=== PATIENT | female | born 1930 | race Caucasian/White ===

== ENCOUNTER 2017-09-06 07:36 | Emergency (ER) | payer MEDICARE ==
[~2017-09-06] VITALS: Ht 167.6 cm; Wt 59.0 kg
[2017-09-06] MEDS ORDERED: ASPI81TA31 PO (07:42)
--- NOTE | 2017-09-06 07:50 | NUR ---
PATIENT IS HERE WITH HER NEIGHBOR. STATES SHE FELL OUT OF BED WHEN SHE WAS GOING TO GET UP TO URINATE. HAS A BRUISE ON HER RIGHT HIP AREA.
[2017-09-06] MEDS ORDERED: ACETAMINOPHEN ES 500 MG TABLET PO ONE (08:15)
[2017-09-06] MEDS ORDERED: ACETAMINOPHEN ES 500 MG TABLET ONE (08:35)
[2017-09-06 08:43] LABS: BASOPHILS % (AUTO) 0.5 % (0.0-2.0); EOSINOPHILS # (AUTO) 0.1 K/uL (0.0-0.7); EOSINOPHILS % (AUTO) 2.2 % (0.0-7.0); HEMATOCRIT 37.8 % (31.2-41.9); HEMOGLOBIN 12.7 g/dL (10.9-14.3); LYMPHOCYTES # (AUTO) 0.3 K/uL (20.0-40.0); LYMPHOCYTES % (AUTO) 6.2 % (20.5-51.5); MEAN CORPUSCULAR HEMOGLOBIN 30.1 uug (24.7-32.8); MEAN CORPUSCULAR HGB CONC 34 g/dL (32.3-35.6); MEAN CORPUSCULAR VOLUME 89.5 fL (75.5-95.3); MONOCYTES # (AUTO) 0.4 K/uL (2.0-10.0); MONOCYTES % (AUTO) 6.5 % (0.0-11.0); NEUTROPHILS # (AUTO) 4.5 K/uL (1.8-8.9); NEUTROPHILS % (AUTO) 84.6 % (38.5-71.5); PLATELET COUNT (AUTO) 132 K/uL (179-408); RED BLOOD CELL COUNT(AUTO) 4.22 MIL/uL (3.63-4.92); WHITE BLOOD COUNT (AUTO) 5.4 K/uL (3.8-11.8)
--- NOTE | 2017-09-06 08:59 | NUR ---
URINE SENT TO LAB.
[2017-09-06 09:07] LABS: CARBON DIOXIDE 29 mmol/L (21-32); CHLORIDE 105 mmol/L (98-107); CREATININE 1.1 mg/dL (0.6-1.3); GLUCOSE 97 mg/dL (74-106); POTASSIUM 4.1 mmol/L (3.5-5.1); UREA NITROGEN, BLOOD 18 mg/dL (7-18)
[2017-09-06 09:23] LABS: ALANINE AMINOTRANSFERASE 31 U/L (14-59); ALKALINE PHOSPHATASE 65 U/L (50-136); ASPARTATE AMINOTRANSFERASE 29 U/L (15-37); BILIRUBIN,DIRECT 0.2 mg/dL (0.0-0.2); BILIRUBIN,TOTAL 0.5 mg/dL (0.2-1.0); TOTAL PROTEIN, SERUM 6.6 g/dL (6.4-8.2)
[2017-09-06 09:31] LABS: *BILIRUBIN,URIN NEGATIVE (NEGATIVE); *BLOOD, URINE NEGATIVE (NEGATIVE); *CLARITY,URINE CLOUDY (CLEAR); *COLOR,URINE LIGHT YELLOW (YELLOW); *KETONES,URINE NEGATIVE (NEGATIVE); *PROTEIN,URINE TRACE (NEGATIVE); *UROBILINOGEN,URINE 0.2 E.U./dl (NORMAL); LEUKOCYTE ESTERASE ,URINE TRACE (NEGATIVE); NITRITE, URINE NEGATIVE (NEGATIVE); PH,URINE 8.5 (5.0-8.0); UGLUCOSE NEGATIVE (NEGATIVE)
[2017-09-06 09:52] LABS: BACTERIA,URINE NONE SEEN /HPF (NONE SEEN); RBC,URINE 0-3 /HPF (0-3); SQUAMOUS EPITHELIAL CELL,UR FEW /HPF (NONE SEEN); WBC,URINE 0-3 /HPF (0-3)
[2017-09-06 09:53] LABS: URINE AMORPHOUS PHOSPHATES FEW /HPF
[2017-09-06] MEDS ORDERED: NEOMY/BACITRA/POLYMYXIN B OINT UD PACKET TP ONE ×2 (10:00→10:03)
--- NOTE | 2017-09-06 10:32 | NUR ---
IV removed. Catheter intact and site benign. Pressure and 4x4 gauze applied to site. No bleeding noted.
--- NOTE | 2017-09-06 11:00 | NUR ---
Patient discharged to home in stable conditon. Written and verbal after care instructions given. Patient verbalizes understanding of instructions.
[2017-09-06 11:01] VITALS: BP 139/84
== END 2017-09-06 11:02 | disposition home or self-care (01) ==
LOC: ER 07:37
DX: S70.01XA Contusion of right hip, initial encounter (principal); I10 Essential (primary) hypertension; Z79.82 Long term (current) use of aspirin; W06.XXXA Fall from bed, initial encounter; Y93.89 Activity, other specified; Y92.89 Other specified places as the place of occurrence of the external cause; Y99.8 Other external cause status
CPT/HCPCS: 36415; 70450; 71045; 73502; 80048; 80076; 81001; 84443; 84484; 85025; 85730; 93005; 99285; A4663; A9150; 70030-TC

== ENCOUNTER 2017-12-19 16:20 | Inpatient (IN) | payer MEDICARE ==
[~2017-12-19] VITALS: Ht 170.2 cm; Wt 60.4 kg
[~2017-12-19 16:20] MED LIST: ASPI81TA31 PO
[2017-12-19] MEDS ORDERED: LEVOTHYROXINE 50 MCG TABLET (16:49)
[2017-12-19] MEDS ORDERED: AMITRIPTYLINE HCL 25 MG TAB (16:49)
[2017-12-19] MEDS ORDERED: MEMANTINE HCL 5 MG TABLET (16:49)
[2017-12-19] MEDS ORDERED: DONEPEZIL HCL 10 MG TABLET (16:49)
[2017-12-19] MEDS ORDERED: BUSPIRONE HCL 10 MG TABLET (16:49)
[2017-12-19] MEDS ORDERED: LORAZEPAM 1 MG TABLET (16:49)
[2017-12-19 17:17] LABS: *BILIRUBIN,URIN NEGATIVE (NEGATIVE); *BLOOD, URINE 2+ (NEGATIVE); *CLARITY,URINE CLEAR (CLEAR); *COLOR,URINE YELLOW (YELLOW); *KETONES,URINE NEGATIVE (NEGATIVE); *PROTEIN,URINE NEGATIVE (NEGATIVE); LEUKOCYTE ESTERASE ,URINE TRACE (NEGATIVE); NITRITE, URINE NEGATIVE (NEGATIVE); UGLUCOSE NEGATIVE (NEGATIVE)
[2017-12-19 17:27] LABS: BACTERIA,URINE FEW /HPF (NONE SEEN); RBC,URINE 0-3 /HPF (0-3); SQUAMOUS EPITHELIAL CELL,UR FEW /HPF (NONE SEEN); WBC,URINE 0-3 /HPF (0-3)
[2017-12-19 17:33] LABS: BASOPHILS % (AUTO) 0.5 % (0.0-2.0); EOSINOPHILS # (AUTO) 0.1 K/uL (0.0-0.7); EOSINOPHILS % (AUTO) 1.6 % (0.0-7.0); HEMATOCRIT 40.5 % (31.2-41.9); HEMOGLOBIN 13.8 g/dL (10.9-14.3); LYMPHOCYTES # (AUTO) 0.6 K/uL (20.0-40.0); LYMPHOCYTES % (AUTO) 10.3 % (20.5-51.5); MEAN CORPUSCULAR HEMOGLOBIN 30.8 uug (24.7-32.8); MEAN CORPUSCULAR HGB CONC 34 g/dL (32.3-35.6); MEAN CORPUSCULAR VOLUME 90.3 fL (75.5-95.3); MONOCYTES # (AUTO) 0.4 K/uL (2.0-10.0); MONOCYTES % (AUTO) 6.6 % (0.0-11.0); NEUTROPHILS # (AUTO) 4.3 K/uL (1.8-8.9); PLATELET COUNT (AUTO) 138 K/uL (179-408); RED BLOOD CELL COUNT(AUTO) 4.48 MIL/uL (3.63-4.92); WHITE BLOOD COUNT (AUTO) 5.4 K/uL (3.8-11.8)
[2017-12-19 17:41] LABS: CARBON DIOXIDE 31 mmol/L (21-32); CHLORIDE 104 mmol/L (98-107); CREATININE 1.4 mg/dL (0.6-1.3); GLUCOSE 107 mg/dL (74-106); POTASSIUM 4.2 mmol/L (3.5-5.1); UREA NITROGEN, BLOOD 30 mg/dL (7-18)
[2017-12-19 17:54] LABS: ALANINE AMINOTRANSFERASE 64 U/L (14-59); ALKALINE PHOSPHATASE 95 U/L (50-136); ASPARTATE AMINOTRANSFERASE 39 U/L (15-37); BILIRUBIN,DIRECT 0.1 mg/dL (0.0-0.2); BILIRUBIN,TOTAL 0.5 mg/dL (0.2-1.0); TOTAL PROTEIN, SERUM 6.9 g/dL (6.4-8.2)
[2017-12-19] MEDS ORDERED: IV NS 1000 ML 1,000 ML IV ONE (19:00)
[2017-12-19 21:08] VITALS: BP 147/78
[2017-12-19] MEDS ORDERED: ACETAMINOPHEN 325 MG TABLET PO PRN (22:15)
[2017-12-19] MEDS ORDERED: MORPHINE SULFATE 2 MG/1 ML DISP.SYRIN IV PRN (22:15)
[2017-12-19] MEDS ORDERED: ONDANSETRON 4 MG/2 ML VIAL IV PRN (22:15)
[2017-12-19] MEDS: METOPROLOL TARTRATE 25 MG TABLET PO SCH (22:39)
[2017-12-19] MEDS: IV 1/2NS 1000 ML 1,000 ML IV PRN (22:41)
[2017-12-19] MEDS: LORAZEPAM 2 MG/1 ML VIAL IV PRN (22:42)
[2017-12-20] VITALS: BP 178/82
[2017-12-20] MEDS: CLONIDINE HCL 0.1 MG TABLET PO PRN (01:44)
[2017-12-20 04:00] VITALS: BP 150/66
[2017-12-20] MEDS: PANTOPRAZOLE SODIUM 40 MG TABLET.DR PO SCH (06:00)
[2017-12-20] MEDS: LEVOTHYROXINE SODIUM 50 MCG TABLET PO SCH (06:00)
[2017-12-20 07:02] LABS: BASOPHILS % (AUTO) 0.6 % (0.0-2.0); EOSINOPHILS # (AUTO) 0.2 K/uL (0.0-0.7); EOSINOPHILS % (AUTO) 2.7 % (0.0-7.0); HEMATOCRIT 36.7 % (31.2-41.9); HEMOGLOBIN 12.8 g/dL (10.9-14.3); LYMPHOCYTES # (AUTO) 0.6 K/uL (20.0-40.0); LYMPHOCYTES % (AUTO) 11.4 % (20.5-51.5); MEAN CORPUSCULAR HEMOGLOBIN 31.3 uug (24.7-32.8); MEAN CORPUSCULAR HGB CONC 35 g/dL (32.3-35.6); MEAN CORPUSCULAR VOLUME 89.8 fL (75.5-95.3); MONOCYTES # (AUTO) 0.4 K/uL (2.0-10.0); MONOCYTES % (AUTO) 7.6 % (0.0-11.0); NEUTROPHILS # (AUTO) 4.3 K/uL (1.8-8.9); NEUTROPHILS % (AUTO) 77.7 % (38.5-71.5); PLATELET COUNT (AUTO) 143 K/uL (179-408); RED BLOOD CELL COUNT(AUTO) 4.09 MIL/uL (3.63-4.92); WHITE BLOOD COUNT (AUTO) 5.5 K/uL (3.8-11.8)
[2017-12-20 07:11] LABS: ALANINE AMINOTRANSFERASE 51 U/L (14-59); ALKALINE PHOSPHATASE 68 U/L (50-136); ASPARTATE AMINOTRANSFERASE 31 U/L (15-37); BILIRUBIN,TOTAL 0.8 mg/dL (0.2-1.0); CARBON DIOXIDE 29 mmol/L (21-32); CHLORIDE 108 mmol/L (98-107); CHOLESTEROL 152 mg/dL (<200); CREATININE 1.1 mg/dL (0.6-1.3); GLUCOSE 91 mg/dL (74-106); HDL CHOLESTEROL 83 mg/dL (40-60); MAGNESIUM 2.1 mg/dL (1.8-2.4); PHOSPHOROUS 3.2 mg/dL (2.5-4.9); POTASSIUM 4.5 mmol/L (3.5-5.1); TOTAL PROTEIN, SERUM 5.9 g/dL (6.4-8.2); TRIGLYCERIDES 80 MG/DL (30-150); UREA NITROGEN, BLOOD 19 mg/dL (7-18)
[2017-12-20] MEDS: ASPIRIN EC 81 MG TABLET.DR PO SCH (09:02)
[2017-12-20] MEDS: METOPROLOL TARTRATE 25 MG TABLET PO SCH (09:03)
[2017-12-20 11:38] VITALS: BP 105/50
[2017-12-20] MEDS: DONEPEZIL 10 MG TABLET PO SCH (13:01)
[2017-12-20] MEDS: CEFTRIAXONE 1 G in IV DEXTROSE 5% 50 ML IV SCH (13:43)
[2017-12-20] MEDS: IV 1/2NS 1000 ML 1,000 ML IV PRN (13:44)
[2017-12-20] MEDS ORDERED: MORPHINE SULFATE 4 MG/1 ML DISP.SYRIN IV PRN (13:45)
[2017-12-20 15:38] VITALS: BP 146/69
[2017-12-20 19:00] VITALS: BP 147/63
[2017-12-20] MEDS: AMITRIPTYLINE HCL 25 MG TABLET PO SCH (20:01)
[2017-12-20] MEDS: MEMANTINE HCL 5 MG TABLET PO SCH (20:01)
[2017-12-20] MEDS ORDERED: AMITRIPTYLINE HCL 25 MG TABLET PO SCH (21:00)
[2017-12-21] MEDS: LORAZEPAM 2 MG/1 ML VIAL IV PRN (00:08)
[2017-12-21 04:00] VITALS: BP 160/79
[2017-12-21] MEDS: CLONIDINE HCL 0.1 MG TABLET PO PRN (05:14)
[2017-12-21] MEDS: LEVOTHYROXINE SODIUM 50 MCG TABLET PO SCH (06:03)
[2017-12-21] MEDS: PANTOPRAZOLE SODIUM 40 MG TABLET.DR PO SCH (06:03)
[2017-12-21] MEDS: IV 1/2NS 1000 ML 1,000 ML IV PRN (06:18)
[2017-12-21 06:30] LABS: BASOPHILS # (AUTO) 0.1 K/uL (0.0-8.0); BASOPHILS % (AUTO) 0.4 % (0.0-2.0); EOSINOPHILS % (AUTO) 0.2 % (0.0-7.0); HEMATOCRIT 37.4 % (31.2-41.9); HEMOGLOBIN 12.7 g/dL (10.9-14.3); LYMPHOCYTES # (AUTO) 0.7 K/uL (20.0-40.0); LYMPHOCYTES % (AUTO) 5.5 % (20.5-51.5); MEAN CORPUSCULAR HEMOGLOBIN 30.6 uug (24.7-32.8); MEAN CORPUSCULAR HGB CONC 34 g/dL (32.3-35.6); MEAN CORPUSCULAR VOLUME 90.5 fL (75.5-95.3); MONOCYTES # (AUTO) 0.8 K/uL (2.0-10.0); MONOCYTES % (AUTO) 6.4 % (0.0-11.0); NEUTROPHILS # (AUTO) 10.6 K/uL (1.8-8.9); NEUTROPHILS % (AUTO) 87.5 % (38.5-71.5); PLATELET COUNT (AUTO) 122 K/uL (179-408); RED BLOOD CELL COUNT(AUTO) 4.13 MIL/uL (3.63-4.92); WHITE BLOOD COUNT (AUTO) 12.2 K/uL (3.8-11.8)
[2017-12-21 06:44] LABS: ALANINE AMINOTRANSFERASE 53 U/L (14-59); ALKALINE PHOSPHATASE 65 U/L (50-136); ASPARTATE AMINOTRANSFERASE 28 U/L (15-37); BILIRUBIN,TOTAL 0.9 mg/dL (0.2-1.0); CARBON DIOXIDE 27 mmol/L (21-32); CHLORIDE 105 mmol/L (98-107); GLUCOSE 102 mg/dL (74-106); POTASSIUM 3.7 mmol/L (3.5-5.1); TOTAL PROTEIN, SERUM 5.7 g/dL (6.4-8.2); UREA NITROGEN, BLOOD 16 mg/dL (7-18)
[2017-12-21] MEDS ORDERED: LEVOTHYROXINE SODIUM 50 MCG TABLET PO SCH (07:00)
[2017-12-21] MEDS: DONEPEZIL 10 MG TABLET PO SCH (08:11)
[2017-12-21] MEDS: ASPIRIN EC 81 MG TABLET.DR PO SCH (08:11)
[2017-12-21] MEDS: AMLODIPINE 5 MG TABLET PO SCH (09:15)
[2017-12-21 11:34] VITALS: BP 134/60
[2017-12-21] MEDS: CEFTRIAXONE 1 G in IV DEXTROSE 5% 50 ML IV SCH (12:33)
[2017-12-21 16:10] VITALS: BP 119/59
[2017-12-21 19:00] VITALS: BP 142/65
[2017-12-21] MEDS: MEMANTINE HCL 5 MG TABLET PO SCH (20:23)
[2017-12-21] MEDS: AMITRIPTYLINE HCL 25 MG TABLET PO SCH (20:24)
[2017-12-21 21:00] LABS: *BILIRUBIN,URIN NEGATIVE (NEGATIVE); *BLOOD, URINE 3+ (NEGATIVE); *CLARITY,URINE SLIGHTLY CLOUDY (CLEAR); *COLOR,URINE YELLOW (YELLOW); *KETONES,URINE NEGATIVE (NEGATIVE); *PROTEIN,URINE NEGATIVE (NEGATIVE); *UROBILINOGEN,URINE 0.2 E.U./dl (NORMAL); LEUKOCYTE ESTERASE ,URINE 2+ (NEGATIVE); NITRITE, URINE NEGATIVE (NEGATIVE); UGLUCOSE NEGATIVE (NEGATIVE)
[2017-12-21 21:01] LABS: BACTERIA,URINE FEW /HPF (NONE SEEN); SQUAMOUS EPITHELIAL CELL,UR FEW /HPF (NONE SEEN); WBC,URINE 20-50 /HPF (0-3)
[2017-12-22 04:00] VITALS: BP_SYST 118; BP_DIAS 64; BP_DIAS 74
[2017-12-22] MEDS: PANTOPRAZOLE SODIUM 40 MG TABLET.DR PO SCH (06:22)
[2017-12-22] MEDS: LEVOTHYROXINE SODIUM 50 MCG TABLET PO SCH (06:22)
[2017-12-22 06:50] LABS: BASOPHILS % (AUTO) 0.4 % (0.0-2.0); EOSINOPHILS # (AUTO) 0.1 K/uL (0.0-0.7); EOSINOPHILS % (AUTO) 1.4 % (0.0-7.0); HEMATOCRIT 34.6 % (31.2-41.9); HEMOGLOBIN 11.8 g/dL (10.9-14.3); LYMPHOCYTES # (AUTO) 0.6 K/uL (20.0-40.0); LYMPHOCYTES % (AUTO) 6.5 % (20.5-51.5); MEAN CORPUSCULAR HEMOGLOBIN 30.8 uug (24.7-32.8); MEAN CORPUSCULAR HGB CONC 34 g/dL (32.3-35.6); MEAN CORPUSCULAR VOLUME 90.2 fL (75.5-95.3); MONOCYTES # (AUTO) 0.5 K/uL (2.0-10.0); MONOCYTES % (AUTO) 5.8 % (0.0-11.0); NEUTROPHILS # (AUTO) 7.3 K/uL (1.8-8.9); NEUTROPHILS % (AUTO) 85.9 % (38.5-71.5); PLATELET COUNT (AUTO) 130 K/uL (179-408); RED BLOOD CELL COUNT(AUTO) 3.84 MIL/uL (3.63-4.92); WHITE BLOOD COUNT (AUTO) 8.5 K/uL (3.8-11.8)
[2017-12-22 07:03] LABS: ALANINE AMINOTRANSFERASE 43 U/L (14-59); ALKALINE PHOSPHATASE 69 U/L (50-136); ASPARTATE AMINOTRANSFERASE 26 U/L (15-37); BILIRUBIN,TOTAL 0.6 mg/dL (0.2-1.0); CARBON DIOXIDE 27 mmol/L (21-32); CHLORIDE 107 mmol/L (98-107); GLUCOSE 93 mg/dL (74-106); MAGNESIUM 2.1 mg/dL (1.8-2.4); POTASSIUM 3.7 mmol/L (3.5-5.1); TOTAL PROTEIN, SERUM 5.6 g/dL (6.4-8.2); UREA NITROGEN, BLOOD 20 mg/dL (7-18)
[2017-12-22] MEDS: ASPIRIN EC 81 MG TABLET.DR PO SCH (08:04)
[2017-12-22] MEDS: AMLODIPINE 5 MG TABLET PO SCH (08:05)
[2017-12-22] MEDS: DONEPEZIL 10 MG TABLET PO SCH (08:05)
[2017-12-22 11:04] VITALS: BP 130/60
[2017-12-22] MEDS ORDERED: PANT40TA2 PO (13:21)
[2017-12-22] MEDS ORDERED: DONE10TA11 PO (13:21)
[2017-12-22] MEDS ORDERED: AMLO5TAB2 PO (13:21)
[2017-12-22] MEDS ORDERED: CEPH500C2 PO (13:21)
[2017-12-22] MEDS ORDERED: LEVO50TA8 PO (13:21)
[2017-12-22] MEDS ORDERED: ACET325T53 PO (13:21)
[2017-12-22] MEDS ORDERED: AMIT25TA24 PO (13:21)
[2017-12-22] MEDS ORDERED: MEMA5TAB PO (13:21)
[2017-12-22] MEDS ORDERED: ASPI-618 PO (13:21)
[2017-12-22] MEDS ORDERED: CLON0.1T14 PO (13:21)
[2017-12-22] MEDS ORDERED: CEPHALEXIN MONOHYDRATE 500 MG CAPSULE PO SCH (14:00)
[2017-12-22 15:23] VITALS: BP 146/62
== END 2017-12-22 17:44 | DRG 682 ==
LOC: ER 16:25 → TELE 20:00 → MED 12-20 13:07
PROVIDERS: ADMIT Internal Medicine; ATTEND Internal Medicine
DX: N17.0 Acute kidney failure with tubular necrosis (principal); G93.40 Encephalopathy, unspecified; N39.0 Urinary tract infection, site not specified; E44.0 Moderate protein-calorie malnutrition; E86.0 Dehydration; K21.9 Gastro-esophageal reflux disease without esophagitis; E67.8 Other specified hyperalimentation; E03.9 Hypothyroidism, unspecified; M19.90 Unspecified osteoarthritis, unspecified site; G30.9 Alzheimer's disease, unspecified; F02.80 Dementia in other diseases classified elsewhere, unspecified severity, without behavioral disturbance, psychotic disturbance, mood disturbance, and anxiety; J44.9 Chronic obstructive pulmonary disease, unspecified; I11.9 Hypertensive heart disease without heart failure; D69.6 Thrombocytopenia, unspecified; D32.9 Benign neoplasm of meninges, unspecified; M48.02 Spinal stenosis, cervical region; Z98.890 Other specified postprocedural states; Z87.81 Personal history of (healed) traumatic fracture; Z68.20 Body mass index [BMI] 20.0-20.9, adult; I67.2 Cerebral atherosclerosis; R74.0 Nonspecific elevation of levels of transaminase and lactic acid dehydrogenase [LDH]; R73.9 Hyperglycemia, unspecified; F32.9 Major depressive disorder, single episode, unspecified; F41.9 Anxiety disorder, unspecified; Z79.82 Long term (current) use of aspirin; Z79.899 Other long term (current) drug therapy
CPT/HCPCS: 36415; 70030-TC; 70450; 71045; 72125; 83605; 83735; 84100; 84443; 85025; 85730; 87040; 87086; 93005; 93307; 97110; 97116; 97530; A4663; J0696; J2060; J3490; J7030; J7060

== ENCOUNTER 2017-12-22 18:22 | Inpatient (IN) | payer MEDICARE ==
[~2017-12-22] VITALS: Ht 170.2 cm; Wt 59.0 kg
[~2017-12-22 18:22] MED LIST changes: +ACET325T53 PO; +AMIT25TA24 PO; +AMITRIPTYLINE HCL 25 MG TAB; +AMLO5TAB2 PO; +ASPI-618 PO; +BUSPIRONE HCL 10 MG TABLET; +CEPH500C2 PO; +CLON0.1T14 PO; +DONE10TA11 PO; +DONEPEZIL HCL 10 MG TABLET; +LEVO50TA8 PO; +LEVOTHYROXINE 50 MCG TABLET; +LORAZEPAM 1 MG TABLET; +MEMA5TAB PO; +MEMANTINE HCL 5 MG TABLET; +PANT40TA2 PO
[2017-12-22 18:40] VITALS: BP 131/64
[2017-12-22] MEDS ORDERED: Z GUARD REMEDY PASTE 57 GM TUBE TOP PRN (18:45)
--- NOTE | 2017-12-22 18:45 | NUR ---
Admitted this 87 y/0 female from [facility], with diagnosis of acute metabolic encephalopathy, transferred via wheelchair accompanied by TECHNOLOGY DIRECTOR. Report received from nurse Brush. Patient is alert, verbally responsive, not in any form of acute distress. She denies any pain or discomfort. Routine admission care done. Oriented to staff, room and use of devices with verbalized understanding. MRSA screening done. Dr. Gresham made aware of admission. Left a message to Dr. Castillo regarding admission and need for medication reconciliation, awaiting for call back. Endorsed accordingly to night shift supervisor RN for continuation of admission process and care.
[2017-12-22 19:30] VITALS: BP 145/66
[2017-12-22] MEDS: ACETAMINOPHEN 325 MG TABLET PO PRN (21:40)
[2017-12-22] MEDS ORDERED: CLONIDINE HCL 0.1 MG TABLET PO PRN (22:00)
--- NOTE | 2017-12-22 22:00 | NUR ---
Received pt resting in bed. AAO x2-3. Pertinent assessments done. Oriented pt to the unit and equipment. Med recon done. Process plan done. No acute distress noted. C/o pain 3/10 on the back. Meds given as ordered. Safety measures maintained. Bed alarm on. Call light and personal belongings within reach. Will continue to monitor.
--- NOTE | 2017-12-22 22:05 | NUR ---
Wound pictures placed in chart. Wound consult ordered. Will turn and reposition t/o the night. Will continue to monitor.
[2017-12-22] MEDS: AMITRIPTYLINE HCL 25 MG TABLET PO SCH (22:27)
[2017-12-23 06:05] VITALS: BP 116/69
[2017-12-23] MEDS: PANTOPRAZOLE SODIUM 40 MG TABLET.DR PO SCH (06:11)
[2017-12-23] MEDS: LEVOTHYROXINE SODIUM 50 MCG TABLET PO SCH (06:11)
[2017-12-23 08:37] VITALS: BP 115/67
[2017-12-23] MEDS: CEPHALEXIN MONOHYDRATE 500 MG CAPSULE PO SCH ×2 (08:51→21:02)
[2017-12-23] MEDS: ASPIRIN EC 81 MG TABLET.DR PO SCH (08:51)
[2017-12-23] MEDS: AMLODIPINE 5 MG TABLET PO SCH (08:51)
[2017-12-23] MEDS: DONEPEZIL 10 MG TABLET PO SCH (08:51)
--- NOTE | 2017-12-23 09:33 | NUR ---
Received patient awake, alert with periods of confusion. not in distress. Continue keflex every 12 hours for UTI. no adverse reaction noted. will continue monitor
--- NOTE | 2017-12-23 11:51 | NUR ---
WOUND CARE CONSULT: PT PRESENTS WITH INTACT DEEP TISSUE INJURY TO SACRUM, PRESENT ON ADMISSION. RECOMMENDATIONS MADE FOR SKIN PROTECTION AND CARE. DISCUSSED WITH NURSING STAFF. PT HAS VERY DRY SKIN ON LEGS AND ARMS. CURRENT SAVANNAH SCORE IS 16. WILL SEE PRN. GIRON IN AGREEMENT WITH PLAN OF CARE. Addendum: 12/23/17 at 1152 by NANDA WEBBER RN Amended: Links added.
[2017-12-23] MEDS: MINERAL OIL/PETROLATUM,WHITE 57 GM TUBE TOP SCH (14:31)
[2017-12-23] MEDS: AMITRIPTYLINE HCL 25 MG TABLET PO SCH (21:02)
[2017-12-23] MEDS: MEMANTINE HCL 5 MG TABLET PO SCH (21:02)
[2017-12-23 21:33] VITALS: BP 148/71
[2017-12-24 05:25] VITALS: BP 146/74
--- NOTE | 2017-12-24 05:50 | NUR ---
quiet night. aaox2-3 needs attended. kept comfortable. no acute distress noted. will monitor patient. incontinent of urine and BM. kept clean and dry. fall precautions maintained. siderails up for safety.
[2017-12-24] MEDS: LEVOTHYROXINE SODIUM 50 MCG TABLET PO SCH (06:37)
[2017-12-24] MEDS: PANTOPRAZOLE SODIUM 40 MG TABLET.DR PO SCH (06:37)
[2017-12-24 08:00] VITALS: BP 147/67
[2017-12-24] MEDS: CEPHALEXIN MONOHYDRATE 500 MG CAPSULE PO SCH ×2 (09:39→20:28)
[2017-12-24] MEDS: DONEPEZIL 10 MG TABLET PO SCH (09:39)
[2017-12-24] MEDS: AMLODIPINE 5 MG TABLET PO SCH (09:39)
[2017-12-24] MEDS: MINERAL OIL/PETROLATUM,WHITE 57 GM TUBE TOP SCH (09:39)
[2017-12-24] MEDS: ASPIRIN EC 81 MG TABLET.DR PO SCH (09:39)
--- NOTE | 2017-12-24 09:47 | NUR ---
Received patient awake, alert with periods of confusion. not in distress. no complaint of pain/discomfort. Continue keflex every 12 hours for UTI. no adverse reaction noted. no complaint of pain/discomfort. will continue monitor
[2017-12-24 19:45] VITALS: BP 142/68
[2017-12-24] MEDS: AMITRIPTYLINE HCL 25 MG TABLET PO SCH (20:28)
[2017-12-24] MEDS: TEMAZEPAM 7.5 MG CAPSULE PO SCH (20:28)
[2017-12-24] MEDS: MEMANTINE HCL 5 MG TABLET PO SCH (20:28)
--- NOTE | 2017-12-25 04:54 | NUR ---
awake alert and oriented x1-2 pleasantly confused. no acute distress noted. needs attended. tolerated po meds well. incontinent of bowel and bladder. kept clean and dry. fall precautions maintained. siderails up for safety. slept well most of the shift.
[2017-12-25] MEDS: PANTOPRAZOLE SODIUM 40 MG TABLET.DR PO SCH (06:08)
[2017-12-25] MEDS: LEVOTHYROXINE SODIUM 50 MCG TABLET PO SCH (06:08)
--- NOTE | 2017-12-25 07:03 | NUR ---
Nurse notes: Received patient asleep, lying on bed lying comfortably on a semi zapata's position, call igt within reach. Easily aroused. Denies any pain. No display of pain or discomforts. Bilateral half top closer ails up for safety. Bed alarm and bed brakes on for safety. All needs were attended and anticipated. Will continue to closely monitor the patient for safety.
[2017-12-25 08:00] VITALS: BP 140/72
[2017-12-25] MEDS: CEPHALEXIN MONOHYDRATE 500 MG CAPSULE PO SCH ×2 (09:02→20:45)
[2017-12-25] MEDS: DONEPEZIL 10 MG TABLET PO SCH (09:02)
[2017-12-25] MEDS: ASPIRIN EC 81 MG TABLET.DR PO SCH (09:02)
[2017-12-25] MEDS: AMLODIPINE 5 MG TABLET PO SCH (09:02)
[2017-12-25] MEDS: MINERAL OIL/PETROLATUM,WHITE 57 GM TUBE TOP SCH (09:03)
--- NOTE | 2017-12-25 18:29 | NUR ---
End of shift report: patient alert and oriented x 2 remained stable throughout the shift with no acute changes notes. No changes in LOC or mentation, reoriented PRN. skin assessed. Turned and repositioned to prevent any skin breakdown. incontinent checks done, assessed for pain, denies any pain, no display of pain or discomforts. All needs were attended and anticipated, all due medications were given- tolerated well. hourly rounding done, call light within reach at all times, safety precautions observed, bed alarm and bed brakes on and bilateral half side rails up for safety. Will endorse accordingly to incoming shift for continuity of care.
[2017-12-25 19:20] VITALS: BP 143/69
[2017-12-25] MEDS: AMITRIPTYLINE HCL 25 MG TABLET PO SCH (20:45)
[2017-12-25] MEDS: MEMANTINE HCL 5 MG TABLET PO SCH (20:45)
[2017-12-25] MEDS: TEMAZEPAM 7.5 MG CAPSULE PO SCH (20:45)
--- NOTE | 2017-12-26 02:18 | NUR ---
Patient received lying on the bed comfortably on a semi fowlers position, Alert and oriented x1-2. Incontinent on bladder and bowel. Keep her clean and dry. Fall precaution maintained. Two side rails up for safety. Med given as ordered. Call light within reach. Continue to monitor. Addendum: 12/26/17 at 0450 by CHRISTIAN HENRIQUEZ RN with period of confusion.
[2017-12-26] MEDS: LEVOTHYROXINE SODIUM 50 MCG TABLET PO SCH (06:18)
[2017-12-26] MEDS: PANTOPRAZOLE SODIUM 40 MG TABLET.DR PO SCH (06:18)
[2017-12-26 06:38] VITALS: BP 136/76
--- NOTE | 2017-12-26 07:09 | NUR ---
patient awake and oriented x1-2 with period of confusion. No acute distress, no SOB. No change in LOC or mentation. Remained stable throughout the shift. Med given as ordered. No complication. Call light within reach. Bed alarm and brakes on for safety precaution. Will endorse accordingly to incoming shift for continuity of care.
[2017-12-26 08:03] VITALS: BP 179/82
--- NOTE | 2017-12-26 08:40 | NUR ---
I agree Addendum: 12/26/17 at 0841 by RUDOLPH OSBORNE OT Amended: Links added.
--- NOTE | 2017-12-26 08:40 | NUR ---
I agree Addendum: 12/26/17 at 0840 by RUDOLPH OSBORNE OT Amended: Links added.
[2017-12-26] MEDS: ASPIRIN EC 81 MG TABLET.DR PO SCH (09:31)
[2017-12-26] MEDS: AMLODIPINE 5 MG TABLET PO SCH (09:31)
[2017-12-26] MEDS: CEPHALEXIN MONOHYDRATE 500 MG CAPSULE PO SCH ×2 (09:31→20:42)
[2017-12-26] MEDS: DONEPEZIL 10 MG TABLET PO SCH (09:32)
[2017-12-26] MEDS: MINERAL OIL/PETROLATUM,WHITE 57 GM TUBE TOP SCH (09:34)
--- NOTE | 2017-12-26 09:39 | NUR ---
INTERDISCIPLINARY TEAM CONFERENCE
[2017-12-26 15:11] VITALS: BP 151/81
[2017-12-26] MEDS ORDERED: BISACODYL 5 MG TABLET.DR PO PRN (17:15)
--- NOTE | 2017-12-26 18:33 | NUR ---
RECEIVED PATIENT ON BED AWAKE, WATCHING TV, A AND O X 1-2 NO ACUTE DISTRESS NOTED. PT SESSION TODAY WELL TOLERATED. TOOK ALL MEDS WITH NO ADR. ALL NEEDS ATTENDED AND ANTICIPATED. REPOSITIONED Q2 TO PREVENT SKIN BREAKDOWN. COMFORT MEASURES PROVIDED WILL CONTINUE TO MONITOR CLOSELY.
[2017-12-26 20:03] VITALS: BP 119/54
[2017-12-26] MEDS: AMITRIPTYLINE HCL 25 MG TABLET PO SCH (20:42)
[2017-12-26] MEDS: MEMANTINE HCL 5 MG TABLET PO SCH (20:42)
[2017-12-26] MEDS: DOCUSATE SODIUM 100 MG CAPSULE PO SCH (20:43)
[2017-12-26] MEDS: TEMAZEPAM 7.5 MG CAPSULE PO SCH (20:43)
--- NOTE | 2017-12-27 | NUR ---
Patient received lying on the bed comfortably on a semi fowlers position, Awake alert and oriented x1-2 with periods of confusion. Incontinent on bladder and bowel. Keep her clean and dry. Fall precaution maintained. Two side rails up for safety. Med given as ordered. Call light within reach. Continue to monitor.
[2017-12-27 05:58] VITALS: BP 143/63
[2017-12-27] MEDS: PANTOPRAZOLE SODIUM 40 MG TABLET.DR PO SCH (06:15)
[2017-12-27] MEDS: LEVOTHYROXINE SODIUM 50 MCG TABLET PO SCH (06:15)
--- NOTE | 2017-12-27 06:49 | NUR ---
The end of shift note Patient awake and oriented x1-2 with period of confusion. No acute distress, no SOB. No change in LOC or mentation. Remained stable throughout the shift. Med given as ordered. No complication. Call light within reach. Bed alarm and brakes on for safety precaution. Bilaterally half side rails up for her safety. Will endorse accordingly to incoming shift for continuity of care.
[2017-12-27 07:39] VITALS: BP 116/65
[2017-12-27 07:40] VITALS: BP 101/62
[2017-12-27] MEDS: DONEPEZIL 10 MG TABLET PO SCH (09:00)
[2017-12-27] MEDS: ASPIRIN EC 81 MG TABLET.DR PO SCH (09:00)
[2017-12-27] MEDS: DOCUSATE SODIUM 100 MG CAPSULE PO SCH ×3 (09:00→21:34)
[2017-12-27] MEDS: CEPHALEXIN MONOHYDRATE 500 MG CAPSULE PO SCH ×2 (09:00→21:36)
[2017-12-27] MEDS: AMLODIPINE 5 MG TABLET PO SCH ×2 (09:01→16:55)
[2017-12-27] MEDS: MINERAL OIL/PETROLATUM,WHITE 57 GM TUBE TOP SCH (09:02)
[2017-12-27 16:42] VITALS: BP 107/53
--- NOTE | 2017-12-27 18:16 | NUR ---
PATIENT HAS BEEN COOPERATIVE WITH CARE, AMBULATES WITH ASSISTANCE TO THE RESTROOM OCCASIONALLY. PATIENT PARTICIPATED IN THERAPY TODAY. NO REPORTS OF PAIN NOTED THROUGHOUT SHIFT. CURRENTLY PATIENT IS IN BED, NO DISTRESS NOTED, BED IN LOW POSITION, SIDE RAILS UP X2, CALL LIGHT WITHIN REACH.
[2017-12-27 19:34] VITALS: BP 105/53
--- NOTE | 2017-12-27 20:00 | NUR ---
PATIENT WAS RECEIVED LYING IN BED, A/O x 1-2. NCONTINENT BOTH BLADDER AND BOWEL. PT KEPT CLEAN AND DRY. FALL PRECAUTION MAINTAINED. MEDICATION GIVEN ORDERED. CALL LIGHT WITHIN REACH, WILL CONTINUE TO MONITOR.
[2017-12-27] MEDS: AMITRIPTYLINE HCL 25 MG TABLET PO SCH (21:35)
[2017-12-27] MEDS: TEMAZEPAM 7.5 MG CAPSULE PO SCH (21:35)
[2017-12-27] MEDS: MEMANTINE HCL 5 MG TABLET PO SCH (21:35)
[2017-12-28 06:31] VITALS: BP 151/66
[2017-12-28] MEDS: PANTOPRAZOLE SODIUM 40 MG TABLET.DR PO SCH (07:16)
[2017-12-28] MEDS: LEVOTHYROXINE SODIUM 50 MCG TABLET PO SCH (07:16)
[2017-12-28 08:00] VITALS: BP 135/69
[2017-12-28] MEDS: DONEPEZIL 10 MG TABLET PO SCH (08:24)
[2017-12-28] MEDS: AMLODIPINE 5 MG TABLET PO SCH ×2 (08:24→17:11)
[2017-12-28] MEDS: DOCUSATE SODIUM 100 MG CAPSULE PO SCH ×2 (08:24→21:20)
[2017-12-28] MEDS: ASPIRIN EC 81 MG TABLET.DR PO SCH (08:24)
[2017-12-28] MEDS: CEPHALEXIN MONOHYDRATE 500 MG CAPSULE PO SCH ×2 (08:25→21:21)
[2017-12-28] MEDS: MINERAL OIL/PETROLATUM,WHITE 57 GM TUBE TOP SCH (08:25)
[2017-12-28 16:12] VITALS: BP 110/57
--- NOTE | 2017-12-28 17:54 | NUR ---
PATIENT HAS BEEN COOPERATIVE WITH CARE, NO REPORTS OF PAIN. PATIENT REPORTS FEELING STIFF DUE TO NOT HAVING THERAPY TODAY. CURRENTLY PATIENT IS IN BED, NO DISTRESS NOTED, BED IN LOW POSITION, SIDE RAILS UP X2, BED ALARM ON.
[2017-12-28 19:33] VITALS: BP 107/49
--- NOTE | 2017-12-28 20:29 | NUR ---
Patient received lying on the bed comfortably on a semi fowlers position, Awake alert and oriented x2-3. Incontinent on bladder and bowel. Keep her clean and dry. Fall precaution maintained. Two side rails up for safety. Call light within reach. Continue to monitor.
[2017-12-28] MEDS: MEMANTINE HCL 5 MG TABLET PO SCH (21:20)
[2017-12-28] MEDS: TEMAZEPAM 7.5 MG CAPSULE PO SCH (21:20)
[2017-12-28] MEDS: AMITRIPTYLINE HCL 25 MG TABLET PO SCH (21:21)
[2017-12-29 05:58] VITALS: BP 110/53
[2017-12-29] MEDS: LEVOTHYROXINE SODIUM 50 MCG TABLET PO SCH (06:49)
[2017-12-29] MEDS: PANTOPRAZOLE SODIUM 40 MG TABLET.DR PO SCH (06:49)
[2017-12-29 08:33] VITALS: BP 115/58
--- NOTE | 2017-12-29 08:52 | NUR ---
Patient received sleeping on bed. Alert, orientedx2 with periods of confusion. not in distress. no complaint of pain/discomfort. will continue monitor
[2017-12-29] MEDS: AMLODIPINE 5 MG TABLET PO SCH ×2 (09:00→17:21)
[2017-12-29] MEDS: DOCUSATE SODIUM 100 MG CAPSULE PO SCH ×2 (09:11→20:36)
[2017-12-29] MEDS: CEPHALEXIN MONOHYDRATE 500 MG CAPSULE PO SCH ×2 (09:11→20:37)
[2017-12-29] MEDS: DONEPEZIL 10 MG TABLET PO SCH (09:11)
[2017-12-29] MEDS: ASPIRIN EC 81 MG TABLET.DR PO SCH (09:11)
[2017-12-29] MEDS: MINERAL OIL/PETROLATUM,WHITE 57 GM TUBE TOP SCH (09:14)
[2017-12-29 19:30] VITALS: BP 119/58
[2017-12-29] MEDS: MEMANTINE HCL 5 MG TABLET PO SCH (20:36)
[2017-12-29] MEDS: AMITRIPTYLINE HCL 25 MG TABLET PO SCH (20:36)
[2017-12-29] MEDS: TEMAZEPAM 7.5 MG CAPSULE PO SCH (20:37)
[2017-12-29] MEDS: TEMAZEPAM 15 MG CAPSULE PO SCH (21:00)
--- NOTE | 2017-12-29 21:16 | NUR ---
resting in bed upon rounds. aaox2-3 needs attended. kept comfortable. compliant with care. incontinent of bowel and bladder. no BM noted this shift. tolerated po meds well. restoril 7.5 mg po given as scheduled. New order restoril 15 mg to be given at scheduled time, not given, after restoril 7.5 given after dosage changed. Will restart restoril 15 mg tomorrow. charge nurse aware.
--- NOTE | 2017-12-30 06:06 | NUR ---
quiet night. incontinent of urine. kept clean and dry needs attended. denies any pain nor any discomfort. fall precautions maintained. siderails up for safety.
[2017-12-30] MEDS: LEVOTHYROXINE SODIUM 50 MCG TABLET PO SCH (06:10)
[2017-12-30] MEDS: PANTOPRAZOLE SODIUM 40 MG TABLET.DR PO SCH (06:10)
--- NOTE | 2017-12-30 07:30 | NUR ---
Received patient awake, alert and orientedx2-3 with periods of confusion. not in distress. no complaint of pain/discomfort. will continue monitor
[2017-12-30] MEDS: DONEPEZIL 10 MG TABLET PO SCH (08:39)
[2017-12-30] MEDS: ASPIRIN EC 81 MG TABLET.DR PO SCH (08:39)
[2017-12-30] MEDS: AMLODIPINE 5 MG TABLET PO SCH ×2 (08:40→16:48)
[2017-12-30] MEDS: DOCUSATE SODIUM 100 MG CAPSULE PO SCH ×2 (08:40→20:51)
[2017-12-30] MEDS: CEPHALEXIN MONOHYDRATE 500 MG CAPSULE PO SCH (08:40)
[2017-12-30] MEDS: MINERAL OIL/PETROLATUM,WHITE 57 GM TUBE TOP SCH (08:40)
[2017-12-30 08:45] VITALS: BP 142/61
[2017-12-30 15:51] VITALS: BP 114/58
[2017-12-30 20:46] VITALS: BP 117/67
[2017-12-30 20:48] VITALS: BP 139/57
[2017-12-30] MEDS: AMITRIPTYLINE HCL 25 MG TABLET PO SCH (20:51)
[2017-12-30] MEDS: MEMANTINE HCL 5 MG TABLET PO SCH (20:51)
[2017-12-30] MEDS: TEMAZEPAM 15 MG CAPSULE PO SCH (20:53)
[2017-12-31 05:32] VITALS: BP 114/62
[2017-12-31] MEDS: LEVOTHYROXINE SODIUM 50 MCG TABLET PO SCH (06:14)
[2017-12-31] MEDS: PANTOPRAZOLE SODIUM 40 MG TABLET.DR PO SCH (06:14)
--- NOTE | 2017-12-31 06:44 | NUR ---
Pt SLEPT WELL THROUGHOUT THE NIGHT, CONTINUES TO BE COMPLIANT WITH MEDS AND CARE STAFF, DENIES PAIN, NO DISTRESS NOTED, IN STABLE CONDITION. WOUND PICTURES WERE TAKEN AND PLACED IN CHART. EMPHASIZED SAFETY, BED AT LOWEST POSITION WITH WHEELS LOCKED AND SIDE RAILS UP X 2.
[2017-12-31 08:01] LABS: BASOPHILS % (AUTO) 0.6 % (0.0-2.0); EOSINOPHILS # (AUTO) 0.1 K/uL (0.0-0.7); EOSINOPHILS % (AUTO) 2.5 % (0.0-7.0); HEMATOCRIT 38.9 % (31.2-41.9); HEMOGLOBIN 13.2 g/dL (10.9-14.3); LYMPHOCYTES # (AUTO) 0.5 K/uL (20.0-40.0); LYMPHOCYTES % (AUTO) 9.9 % (20.5-51.5); MEAN CORPUSCULAR HGB CONC 34 g/dL (32.3-35.6); MEAN CORPUSCULAR VOLUME 91.4 fL (75.5-95.3); MONOCYTES # (AUTO) 0.3 K/uL (2.0-10.0); MONOCYTES % (AUTO) 5.6 % (0.0-11.0); NEUTROPHILS # (AUTO) 4.5 K/uL (1.8-8.9); NEUTROPHILS % (AUTO) 81.4 % (38.5-71.5); PLATELET COUNT (AUTO) 154 K/uL (179-408); RED BLOOD CELL COUNT(AUTO) 4.25 MIL/uL (3.63-4.92); WHITE BLOOD COUNT (AUTO) 5.5 K/uL (3.8-11.8)
--- NOTE | 2017-12-31 08:11 | NUR ---
I agree Addendum: 12/31/17 at 0811 by SHANAE BAUTISTA OT Amended: Links added.
[2017-12-31 08:24] LABS: ALANINE AMINOTRANSFERASE 87 U/L (14-59); ALKALINE PHOSPHATASE 100 U/L (50-136); ASPARTATE AMINOTRANSFERASE 40 U/L (15-37); BILIRUBIN,TOTAL 0.4 mg/dL (0.2-1.0); CARBON DIOXIDE 33 mmol/L (21-32); CHLORIDE 105 mmol/L (98-107); GLUCOSE 92 mg/dL (74-106); MAGNESIUM 2.5 mg/dL (1.8-2.4); PHOSPHOROUS 3.6 mg/dL (2.5-4.9); POTASSIUM 4.1 mmol/L (3.5-5.1); TOTAL PROTEIN, SERUM 6.7 g/dL (6.4-8.2); UREA NITROGEN, BLOOD 25 mg/dL (7-18)
[2017-12-31 08:30] VITALS: BP 127/63
[2017-12-31] MEDS: ASPIRIN EC 81 MG TABLET.DR PO SCH (09:16)
[2017-12-31] MEDS: DOCUSATE SODIUM 100 MG CAPSULE PO SCH ×2 (09:16→20:41)
[2017-12-31] MEDS: DONEPEZIL 10 MG TABLET PO SCH (09:17)
[2017-12-31] MEDS: AMLODIPINE 5 MG TABLET PO SCH ×2 (09:17→16:42)
[2017-12-31] MEDS: MINERAL OIL/PETROLATUM,WHITE 57 GM TUBE TOP SCH (09:18)
--- NOTE | 2017-12-31 09:41 | NUR ---
SBAR report received, board updated. Pt assessed, denies pain, and no c/o SOB. Compliant with all routine medication administration and nursing care. Plan for today discussed. Wound care provided as ordered. Bed in locked and lowest position, with side rails up x2. Call light within reach. Pt clean and dry. Will continue to monitor.
--- NOTE | 2017-12-31 16:49 | NUR ---
Pt seen by MD, new order received. Amlodipine reduced from BID to once daily. Current BP 12, pulse 78 medication held. All comfort and safety needs attended to promptly this shift. Will continue to monitor and endorse to on coming cnc programmer. Call light within reach.
[2017-12-31 20:23] VITALS: BP 131/63
[2017-12-31] MEDS: MEMANTINE HCL 5 MG TABLET PO SCH (20:41)
[2017-12-31] MEDS: TEMAZEPAM 15 MG CAPSULE PO SCH (20:41)
[2017-12-31] MEDS: AMITRIPTYLINE HCL 25 MG TABLET PO SCH (20:41)
--- NOTE | 2017-12-31 23:58 | NUR ---
RECEIVED Pt IN BED, SLEEPING BUT EASILY AROUSED, A/O X 3 BUT IS NOTED SLIGHTLY FORGETFUL AND SLIGHTLY CONFUSED. DENIES PAIN, NO DISTRESS NOTED, NO OTHER ABNORMALITIES FOUND ASIDE FROM THOSE NOTED IN Pt CHART AND INFORMATION. Pt TOLERATED MEDS WELL, CONTINUES TO BE COMPLIANT WITH MEDS, STAFF AND PLAN OF CARE. EMPHASIZED SAFETY, BED AT LOWEST POSITION WITH WHEELS LOCKED AND SIDE RAILS UP X 2. CALL LIGHT WITHIN REACH.
[2018-01-01 06:15] VITALS: BP 156/75
[2018-01-01] MEDS: LEVOTHYROXINE SODIUM 50 MCG TABLET PO SCH (06:20)
[2018-01-01] MEDS: PANTOPRAZOLE SODIUM 40 MG TABLET.DR PO SCH (06:20)
--- NOTE | 2018-01-01 07:02 | NUR ---
Pt WAS ABLE TO SLEEP AFTER RESTORIL PO PRN ADMINISTRATION LAST NIGHT. NO OTHER PRN MEDS GIVEN THROUGHOUT THE NIGHT. DENIES PAIN, NO DISTRESS NOTED THIS MORNING, CONTINUES TO BE COMPLIANT AND COOPERATIVE WITH MEDS AND CARE STAFF.
[2018-01-01 07:36] VITALS: BP 133/59
[2018-01-01] MEDS: DOCUSATE SODIUM 100 MG CAPSULE PO SCH ×2 (09:08→20:32)
[2018-01-01] MEDS: ASPIRIN EC 81 MG TABLET.DR PO SCH (09:08)
[2018-01-01] MEDS: DONEPEZIL 10 MG TABLET PO SCH (09:08)
[2018-01-01] MEDS: AMLODIPINE 5 MG TABLET PO SCH (09:10)
[2018-01-01] MEDS: MINERAL OIL/PETROLATUM,WHITE 57 GM TUBE TOP SCH (09:10)
[2018-01-01 15:13] VITALS: BP 116/55
[2018-01-01] MEDS: AMITRIPTYLINE HCL 25 MG TABLET PO SCH (20:32)
[2018-01-01] MEDS: TEMAZEPAM 15 MG CAPSULE PO SCH (20:32)
[2018-01-01] MEDS: MEMANTINE HCL 5 MG TABLET PO SCH (20:33)
[2018-01-01 20:35] VITALS: BP 107/50
--- NOTE | 2018-01-01 21:08 | NUR ---
1900 PT WATCHING TV. PT RESTING IN ROOM . APPEARS COMFORTABLE. 2100 PT RESTING IN BED. PT TIRED. Addendum: 01/02/18 at 0108 by Zoie Meyer RN 2300 pt resting in room 0100 pt asleep Addendum: 01/02/18 at 0548 by Zoie Meyer RN 0300 pt asleep 0500 pt watching tv, resting in bed.
[2018-01-02 05:57] VITALS: BP 120/53
[2018-01-02] MEDS: PANTOPRAZOLE SODIUM 40 MG TABLET.DR PO SCH (06:06)
[2018-01-02] MEDS: LEVOTHYROXINE SODIUM 50 MCG TABLET PO SCH (06:06)
[2018-01-02 08:00] VITALS: BP 108/60
[2018-01-02] MEDS: DOCUSATE SODIUM 100 MG CAPSULE PO SCH ×2 (08:10→21:12)
[2018-01-02] MEDS: ASPIRIN EC 81 MG TABLET.DR PO SCH (08:10)
[2018-01-02] MEDS: DONEPEZIL 10 MG TABLET PO SCH (08:10)
[2018-01-02] MEDS: AMLODIPINE 5 MG TABLET PO SCH (08:11)
[2018-01-02] MEDS: MINERAL OIL/PETROLATUM,WHITE 57 GM TUBE TOP SCH (08:12)
--- NOTE | 2018-01-02 09:46 | NUR ---
SBAR report received, board updated. Pt assessed, no c/o pain or evidence of acute distress noted. All comfort and safety measures met. Bed in locked and lowest position, side rails up x2. Call light within reach will continue to monitor.
[2018-01-02] MEDS: ACETAMINOPHEN 325 MG TABLET PO PRN (14:02)
[2018-01-02] MEDS: PHENAZOPYRIDINE HCL 100 MG TABLET PO SCH ×2 (14:49→21:12)
--- NOTE | 2018-01-02 14:51 | NUR ---
Pt c/o dysuria, made aware, new orders received. Will continue to monitor and collect Urine sample when able. Pt compliant with care at this time.
--- NOTE | 2018-01-02 16:12 | NUR ---
INTERDISCIPLINARY TEAM CONFERENCE
[2018-01-02 16:18] VITALS: BP 122/60
[2018-01-02 17:03] LABS: *BLOOD, URINE 3+ (NEGATIVE); *KETONES,URINE 1+ (NEGATIVE); LEUKOCYTE ESTERASE ,URINE 3+ (NEGATIVE); NITRITE, URINE POSITIVE (NEGATIVE); PH,URINE 5.5 (5.0-8.0)
[2018-01-02 17:21] LABS: *BILIRUBIN,URIN NEGATIVE (NEGATIVE); *PROTEIN,URINE 3+ (NEGATIVE); UGLUCOSE NEGATIVE (NEGATIVE)
[2018-01-02 17:22] LABS: *CLARITY,URINE BLOODY (CLEAR); *COLOR,URINE RED (YELLOW)
[2018-01-02 17:25] LABS: BACTERIA,URINE MODERATE /HPF (NONE SEEN); RBC,URINE TNTC /HPF (0-3); WBC,URINE TNTC /HPF (0-3)
--- NOTE | 2018-01-02 18:07 | NUR ---
Urine sample collected and taken to lab. Results received from lab. notified. No new orders at this time. Pt denies pain at this time and is asymptomatic. Resting comfortably in bed following eating 100% of dinner. Will continue to monitor and endorse to oncoming police shift commander.
[2018-01-02] MEDS: AMITRIPTYLINE HCL 25 MG TABLET PO SCH (21:12)
[2018-01-02] MEDS: TEMAZEPAM 15 MG CAPSULE PO SCH (21:12)
[2018-01-02] MEDS: MEMANTINE HCL 5 MG TABLET PO SCH (21:12)
[2018-01-02 21:29] VITALS: BP 105/45
[2018-01-02] MEDS ORDERED: SULFAMETH/TRIMETH 800/160 MG TABLET PO SCH (23:00)
[2018-01-03] MEDS: PHENAZOPYRIDINE HCL 100 MG TABLET PO SCH ×3 (06:14→21:08)
[2018-01-03] MEDS: LEVOTHYROXINE SODIUM 50 MCG TABLET PO SCH (06:14)
[2018-01-03] MEDS: PANTOPRAZOLE SODIUM 40 MG TABLET.DR PO SCH (06:14)
[2018-01-03 07:28] LABS: BASOPHILS # (AUTO) 0.1 K/uL (0.0-8.0); BASOPHILS % (AUTO) 0.6 % (0.0-2.0); EOSINOPHILS % (AUTO) 0.4 % (0.0-7.0); HEMATOCRIT 34.5 % (31.2-41.9); HEMOGLOBIN 11.9 g/dL (10.9-14.3); LYMPHOCYTES # (AUTO) 0.4 K/uL (20.0-40.0); LYMPHOCYTES % (AUTO) 4.4 % (20.5-51.5); MEAN CORPUSCULAR HEMOGLOBIN 31.2 uug (24.7-32.8); MEAN CORPUSCULAR HGB CONC 35 g/dL (32.3-35.6); MEAN CORPUSCULAR VOLUME 90.6 fL (75.5-95.3); MONOCYTES # (AUTO) 0.5 K/uL (2.0-10.0); MONOCYTES % (AUTO) 5.3 % (0.0-11.0); NEUTROPHILS # (AUTO) 8.2 K/uL (1.8-8.9); NEUTROPHILS % (AUTO) 89.3 % (38.5-71.5); PLATELET COUNT (AUTO) 125 K/uL (179-408); RED BLOOD CELL COUNT(AUTO) 3.81 MIL/uL (3.63-4.92); WHITE BLOOD COUNT (AUTO) 9.2 K/uL (3.8-11.8)
[2018-01-03 07:42] LABS: ALANINE AMINOTRANSFERASE 100 U/L (14-59); ALKALINE PHOSPHATASE 102 U/L (50-136); ASPARTATE AMINOTRANSFERASE 56 U/L (15-37); BILIRUBIN,TOTAL 0.7 mg/dL (0.2-1.0); CARBON DIOXIDE 30 mmol/L (21-32); CHLORIDE 105 mmol/L (98-107); CREATININE 0.9 mg/dL (0.6-1.3); GLUCOSE 98 mg/dL (74-106); MAGNESIUM 2.3 mg/dL (1.8-2.4); PHOSPHOROUS 3.1 mg/dL (2.5-4.9); POTASSIUM 4.2 mmol/L (3.5-5.1); TOTAL PROTEIN, SERUM 5.9 g/dL (6.4-8.2); UREA NITROGEN, BLOOD 23 mg/dL (7-18)
[2018-01-03 08:24] VITALS: BP 123/57
[2018-01-03] MEDS: DOCUSATE SODIUM 100 MG CAPSULE PO SCH ×2 (08:24→21:08)
[2018-01-03] MEDS: ASPIRIN EC 81 MG TABLET.DR PO SCH (08:24)
[2018-01-03] MEDS: DONEPEZIL 10 MG TABLET PO SCH (08:24)
[2018-01-03] MEDS: AMLODIPINE 5 MG TABLET PO SCH (08:24)
[2018-01-03] MEDS: MINERAL OIL/PETROLATUM,WHITE 57 GM TUBE TOP SCH (08:25)
[2018-01-03] MEDS: SULFAMETH/TRIMETH 800/160 MG TABLET PO SCH ×2 (08:32→21:08)
--- NOTE | 2018-01-03 09:28 | NUR ---
Received patient awake, alert and orientedx2 with periods of confusion. not in distress. Continue on Bactrim for UTI. no adverse reaction noted. no complaint voiced. will continue monitor
[2018-01-03] MEDS: ACETAMINOPHEN 325 MG TABLET PO PRN (10:13)
[2018-01-03 15:55] VITALS: BP 117/67
[2018-01-03 20:15] VITALS: BP 109/49
[2018-01-03] MEDS: MEMANTINE HCL 5 MG TABLET PO SCH (21:08)
[2018-01-03] MEDS: AMITRIPTYLINE HCL 25 MG TABLET PO SCH (21:09)
[2018-01-03] MEDS: TEMAZEPAM 15 MG CAPSULE PO SCH (21:10)
[2018-01-04 05:00] VITALS: BP 114/51
[2018-01-04] MEDS: PHENAZOPYRIDINE HCL 100 MG TABLET PO SCH ×3 (05:39→21:10)
[2018-01-04] MEDS: LEVOTHYROXINE SODIUM 50 MCG TABLET PO SCH (06:14)
[2018-01-04] MEDS: PANTOPRAZOLE SODIUM 40 MG TABLET.DR PO SCH (06:14)
--- NOTE | 2018-01-04 06:50 | NUR ---
PATIENT AWAKE ON BED. KEPT CLEAN AND DRY. NO C/O OF PAIN OR ANY DISCOMFORT.ALL NEEDS MET.
[2018-01-04 08:02] VITALS: BP 108/51
[2018-01-04] MEDS: SULFAMETH/TRIMETH 800/160 MG TABLET PO SCH ×2 (08:42→21:08)
[2018-01-04] MEDS: DONEPEZIL 10 MG TABLET PO SCH (08:42)
[2018-01-04] MEDS: DOCUSATE SODIUM 100 MG CAPSULE PO SCH ×2 (08:43→21:09)
[2018-01-04] MEDS: ASPIRIN EC 81 MG TABLET.DR PO SCH (08:43)
[2018-01-04] MEDS: AMLODIPINE 5 MG TABLET PO SCH (08:43)
[2018-01-04] MEDS: MINERAL OIL/PETROLATUM,WHITE 57 GM TUBE TOP SCH (08:45)
--- NOTE | 2018-01-04 09:42 | NUR ---
Patient noted sitting up in bed watching tv, no complaints of pain, no signs of distress, took pills whole, call light in reach, bed locked and in lowest position, x 2 bed rails
[2018-01-04 16:15] VITALS: BP 101/52
[2018-01-04 19:45] VITALS: BP 109/47
[2018-01-04] MEDS: AMITRIPTYLINE HCL 25 MG TABLET PO SCH (21:09)
[2018-01-04] MEDS: MEMANTINE HCL 5 MG TABLET PO SCH (21:10)
[2018-01-04] MEDS: TEMAZEPAM 15 MG CAPSULE PO SCH (21:10)
[2018-01-05 05:00] VITALS: BP 126/56
[2018-01-05] MEDS: LEVOTHYROXINE SODIUM 50 MCG TABLET PO SCH (06:27)
[2018-01-05] MEDS: PANTOPRAZOLE SODIUM 40 MG TABLET.DR PO SCH (06:27)
[2018-01-05] MEDS: PHENAZOPYRIDINE HCL 100 MG TABLET PO SCH ×3 (06:27→21:21)
[2018-01-05] MEDS: SULFAMETH/TRIMETH 800/160 MG TABLET PO SCH ×2 (08:26→21:21)
[2018-01-05 08:28] VITALS: BP 107/48
[2018-01-05] MEDS: DOCUSATE SODIUM 100 MG CAPSULE PO SCH ×2 (08:32→21:21)
[2018-01-05] MEDS: DONEPEZIL 10 MG TABLET PO SCH (08:32)
[2018-01-05] MEDS: ASPIRIN EC 81 MG TABLET.DR PO SCH (08:32)
[2018-01-05] MEDS: AMLODIPINE 5 MG TABLET PO SCH (08:32)
[2018-01-05] MEDS: MINERAL OIL/PETROLATUM,WHITE 57 GM TUBE TOP SCH (08:33)
[2018-01-05 19:30] VITALS: BP 120/57
--- NOTE | 2018-01-05 19:30 | NUR ---
PT IN ROOM ALERT AWAKE IN NO ACUTE DISTRESS. ABLE TO MAKE NEEDS KNOWN AND FOLLOW SIMPLE COMMANDS. DENIES ANY PAIN OR SOB. REMINDED PT TO REQUEST FOR ASSISTANCE WHEN NEEDED. WILL CONTINUE TO MONITOR.
[2018-01-05] MEDS: MEMANTINE HCL 5 MG TABLET PO SCH (21:21)
[2018-01-05] MEDS: AMITRIPTYLINE HCL 25 MG TABLET PO SCH (21:21)
[2018-01-05] MEDS: TEMAZEPAM 15 MG CAPSULE PO SCH (21:24)
[2018-01-06] MEDS: LEVOTHYROXINE SODIUM 50 MCG TABLET PO SCH (06:17)
[2018-01-06] MEDS: PANTOPRAZOLE SODIUM 40 MG TABLET.DR PO SCH (06:17)
[2018-01-06] MEDS: PHENAZOPYRIDINE HCL 100 MG TABLET PO SCH ×2 (06:17→14:15)
--- NOTE | 2018-01-06 06:30 | NUR ---
PT IN ROOM ALERT AWAKE ONLY ABLE TO SLEEP 3-4 HRS OVERNIGHT. NO ACUTE DISTRESS OR C/O PAIN. PT REPOSITIONED WITH HOB ELEVATED 30 DEGREES. DENIES ANY PAIN OR SOB. WILL CONTINUE TO MONITOR. NO ADVERSE EFFECT R/T RECENT BACTRIM ATB.
[2018-01-06] MEDS: ASPIRIN EC 81 MG TABLET.DR PO SCH (08:13)
[2018-01-06] MEDS: DOCUSATE SODIUM 100 MG CAPSULE PO SCH (08:13)
[2018-01-06] MEDS: AMLODIPINE 5 MG TABLET PO SCH (08:13)
[2018-01-06] MEDS: DONEPEZIL 10 MG TABLET PO SCH (08:13)
[2018-01-06] MEDS: SULFAMETH/TRIMETH 800/160 MG TABLET PO SCH (08:13)
[2018-01-06] MEDS: MINERAL OIL/PETROLATUM,WHITE 57 GM TUBE TOP SCH (08:14)
[2018-01-06 08:41] VITALS: BP 115/55
--- NOTE | 2018-01-06 14:07 | NUR ---
D/C FAMILY HERE TO TAKE HER HOME SKIN IS INTACT ALL AREAS TO PERINEUM AND BUTTOCK INTACT NO BREAKDOWN NOTED. NO PICS TAKEN. DISCHARGE INSTRUCTIONS GIVEN TO DAUGHTER. VERBALIZE UNDERSTANDING
== END 2018-01-06 14:30 | disposition home health service (06) | DRG 71 ==
PROVIDERS: ADMIT Physical Medicine & Rehabilitation Pain Medicine; ATTEND Physical Medicine & Rehabilitation Pain Medicine
DX: G93.41 Metabolic encephalopathy (principal); E44.0 Moderate protein-calorie malnutrition; I13.0 Hypertensive heart and chronic kidney disease with heart failure and stage 1 through stage 4 chronic kidney disease, or unspecified chronic kidney disease; I50.32 Chronic diastolic (congestive) heart failure; N39.0 Urinary tract infection, site not specified; J84.9 Interstitial pulmonary disease, unspecified; E03.9 Hypothyroidism, unspecified; F03.90 Unspecified dementia, unspecified severity, without behavioral disturbance, psychotic disturbance, mood disturbance, and anxiety; I25.10 Atherosclerotic heart disease of native coronary artery without angina pectoris; J44.9 Chronic obstructive pulmonary disease, unspecified; N18.9 Chronic kidney disease, unspecified; I12.9 Hypertensive chronic kidney disease with stage 1 through stage 4 chronic kidney disease, or unspecified chronic kidney disease; R29.6 Repeated falls; R26.9 Unspecified abnormalities of gait and mobility; B96.20 Unspecified Escherichia coli [E. coli] as the cause of diseases classified elsewhere; D69.6 Thrombocytopenia, unspecified; E78.5 Hyperlipidemia, unspecified; G47.00 Insomnia, unspecified; M19.90 Unspecified osteoarthritis, unspecified site; L89.150 Pressure ulcer of sacral region, unstageable; Z91.81 History of falling; M48.02 Spinal stenosis, cervical region; F32.9 Major depressive disorder, single episode, unspecified; R73.9 Hyperglycemia, unspecified; F41.9 Anxiety disorder, unspecified; R79.89 Other specified abnormal findings of blood chemistry; K21.9 Gastro-esophageal reflux disease without esophagitis; R53.1 Weakness
CPT/HCPCS: 36415; 70030-TC; 83735; 84100; 85025; 87077; 87086; 92507; 92523; 92610; 97110; 97112; 97116; 97530; 97535

== ENCOUNTER 2019-05-05 23:32 | Inpatient (IN) | payer MEDICARE ==
[~2019-05-05] VITALS: Ht 167.6 cm; Wt 58.6 kg
[~2019-05-05 23:32] MED LIST changes: -AMITRIPTYLINE HCL 25 MG TAB; -AMLO5TAB2 PO; +AMLO5TAB9 PO; -ASPI81TA31 PO; -BUSPIRONE HCL 10 MG TABLET; -DONEPEZIL HCL 10 MG TABLET; -LEVOTHYROXINE 50 MCG TABLET; -LORAZEPAM 1 MG TABLET; -MEMANTINE HCL 5 MG TABLET
[2019-05-06] MEDS ORDERED: HYDROCODONE/APAP 10-325 MG TABLET PO ONE
[2019-05-06] MEDS ORDERED: ONDANSETRON ODT 4 MG TAB.RAPDIS SL ONE
[2019-05-06] MEDS ORDERED: HYDROCODONE/APAP 10-325 MG TABLET ONE (00:03)
[2019-05-06] MEDS ORDERED: ONDANSETRON ODT 4 MG TAB.RAPDIS ONE (00:03)
--- NOTE | 2019-05-06 00:35 | NUR ---
Dr. Bella talking to pt's primary MD, Dr. Bhagat on telephone.
--- NOTE | 2019-05-06 01:10 | NUR ---
Paged [employer] for panel call per MD request. Pending call back from Dr. Castillo.
--- NOTE | 2019-05-06 01:22 | NUR ---
Dr. Bella spoke with Dr. Castillo.
--- NOTE | 2019-05-06 01:42 | NUR ---
Pt. admitted to Med/Surg, under care of Dr. Castillo. Diagnosis: Right Humerus Fracture. Belongs List completed
[2019-05-06 01:56] LABS: BASOPHILS % (AUTO) 0.2 % (0.0-2.0); EOSINOPHILS # (AUTO) 0.1 K/uL (0.0-0.7); EOSINOPHILS % (AUTO) 0.8 % (0.0-7.0); HEMATOCRIT 38.3 % (31.2-41.9); HEMOGLOBIN 12.7 g/dL (10.9-14.3); LYMPHOCYTES # (AUTO) 0.6 K/uL (20.0-40.0); LYMPHOCYTES % (AUTO) 9.3 % (20.5-51.5); MEAN CORPUSCULAR HEMOGLOBIN 31.1 uug (24.7-32.8); MEAN CORPUSCULAR HGB CONC 33 g/dL (32.3-35.6); MEAN CORPUSCULAR VOLUME 93.7 fL (75.5-95.3); MONOCYTES # (AUTO) 0.3 K/uL (2.0-10.0); MONOCYTES % (AUTO) 4.9 % (0.0-11.0); NEUTROPHILS # (AUTO) 5.1 K/uL (1.8-8.9); NEUTROPHILS % (AUTO) 84.8 % (38.5-71.5); PLATELET COUNT (AUTO) 113 K/uL (179-408); RED BLOOD CELL COUNT(AUTO) 4.08 MIL/uL (3.63-4.92)
[2019-05-06 01:57] LABS: CARBON DIOXIDE 28 mmol/L (21-32); CHLORIDE 102 mmol/L (98-107); GLUCOSE 130 mg/dL (74-106); POTASSIUM 4.2 mmol/L (3.5-5.1); UREA NITROGEN, BLOOD 15 mg/dL (7-18)
[2019-05-06] MEDS ORDERED: MELA5TAB PO (02:10)
[2019-05-06] MEDS ORDERED: LEVO50TA8 PO (02:10)
[2019-05-06] MEDS ORDERED: ASPI-866 PO (02:10)
[2019-05-06] MEDS ORDERED: AMIT25TA9 PO (02:10)
[2019-05-06] MEDS ORDERED: OXYB10TA4 PO (02:10)
[2019-05-06] MEDS ORDERED: SENN-18 PO (02:10)
[2019-05-06] MEDS ORDERED: DIPH25CA83 PO (02:10)
[2019-05-06] MEDS ORDERED: MEMA10TA PO (02:10)
[2019-05-06] MEDS ORDERED: DONE10TA44 PO (02:10)
[2019-05-06] MEDS ORDERED: MIRT15TA7 PO (02:10)
[2019-05-06 02:20] VITALS: BP 154/69
--- NOTE | 2019-05-06 02:20 | NUR ---
Admitted 88 y/o Female under the care of Dr. Castillo. Dx: R humerus fx. Patient is A&Ox3-4. Unable to ambulate at this time. Immobilizer on R arm kept in place. Oriented patient to her room and with the use of call light. Admission protocol initiated. Safety measures observed. Call light within reach
[2019-05-06 02:21] LABS: ALANINE AMINOTRANSFERASE 24 U/L (14-59); ALKALINE PHOSPHATASE 58 U/L (50-136); ASPARTATE AMINOTRANSFERASE 16 U/L (15-37); BILIRUBIN,DIRECT 0.2 mg/dL (0.0-0.2); BILIRUBIN,TOTAL 0.5 mg/dL (0.2-1.0); TOTAL PROTEIN, SERUM 6.4 g/dL (6.4-8.2)
[2019-05-06] MEDS ORDERED: ACETAMINOPHEN 325 MG TABLET PO PRN ×2 (03:30→08:45)
[2019-05-06] MEDS ORDERED: ONDANSETRON 4 MG/2 ML VIAL IV PRN ×2 (03:30→08:45)
[2019-05-06 04:30] VITALS: BP 142/60
[2019-05-06] MEDS: MORPHINE SULFATE 2 MG/1 ML DISP.SYRIN IV PRN ×3 (04:43→16:41)
[2019-05-06] MEDS: PANTOPRAZOLE SODIUM 40 MG TABLET.DR PO SCH (06:08)
[2019-05-06] MEDS ORDERED: CLONIDINE HCL 0.1 MG TABLET PO PRN (06:45)
--- NOTE | 2019-05-06 07:00 | NUR ---
Received patient in Bed, awake and verbally responsive. No Signs of Distress noted. No SOB. No complain of Pain or discomfort at this time. On Right Arm Immobilizer, Kept the call light within easy reach. Will continue to monitor.
[2019-05-06] MEDS: LEVOTHYROXINE SODIUM 50 MCG TABLET PO SCH (07:27)
[2019-05-06] MEDS: DONEPEZIL 10 MG TABLET PO SCH (08:20)
[2019-05-06] MEDS: OXYBUTYNIN XL 5 MG TABSR PO SCH (08:21)
[2019-05-06] MEDS: AMLODIPINE 5 MG TABLET PO SCH (08:21)
[2019-05-06] MEDS ORDERED: ZOLPIDEM 5 MG TABLET PO PRN (08:45)
[2019-05-06] MEDS ORDERED: MAGNESIUM HYDROXIDE 30 ML LIQUID UDC PO PRN (08:45)
[2019-05-06] MEDS ORDERED: Z GUARD REMEDY PASTE 57 GM TUBE TOP PRN (08:45)
--- NOTE | 2019-05-06 10:35 | NUR ---
Patient RP (son) came and clarified POLST and change it to DNR, patient is aware, alert and verbally responsive.
[2019-05-06 11:03] VITALS: BP 131/59
[2019-05-06] MEDS: ENOXAPARIN SODIUM 40 MG/0.4 ML DISP.SYRIN SQ SCH (12:03)
[2019-05-06 15:10] VITALS: BP 114/54
--- NOTE | 2019-05-06 18:08 | NUR ---
Patient in bed, awake and verbally responsive. No signs of Distress noted. Pain Medication given as ordered. Seen and examined by Dr. Lagos, No Surgery needed. Kept clean and comfortable. Right Arm Sling intact. All due medications given as ordered, Will endorse to Oncoming Nurse.
--- NOTE | 2019-05-06 20:00 | NUR ---
received pt in bed v/s and assessment done same stable .pt denies pain with rt shouler sling in place no distress noted at this time
[2019-05-06 20:02] VITALS: BP 124/55
[2019-05-06] MEDS ORDERED: HEPARIN SODIUM,PORCINE 5,000 UNITS/ML VIAL SQ SCH (21:00)
[2019-05-06] MEDS: MIRTAZAPINE 15 MG TABLET PO SCH (21:53)
[2019-05-06] MEDS: MEMANTINE HCL 5 MG TABLET PO SCH (21:53)
[2019-05-06] MEDS: AMITRIPTYLINE HCL 25 MG TABLET PO SCH (21:53)
[2019-05-07 04:00] VITALS: BP 142/66
--- NOTE | 2019-05-07 04:00 | NUR ---
am care given reposition made comfortable,pt became anxious reassure made comfortable,pt now resting and asleep in bed.
[2019-05-07] MEDS: PANTOPRAZOLE SODIUM 40 MG TABLET.DR PO SCH (06:21)
[2019-05-07] MEDS: LEVOTHYROXINE SODIUM 50 MCG TABLET PO SCH (06:21)
[2019-05-07 06:48] LABS: EOSINOPHILS # (AUTO) 0.1 K/uL (0.0-0.7); LYMPHOCYTES # (AUTO) 0.6 K/uL (20.0-40.0); MONOCYTES # (AUTO) 0.5 K/uL (2.0-10.0)
[2019-05-07 07:06] LABS: BASOPHILS % (AUTO) 0.7 % (0.0-2.0); EOSINOPHILS % (AUTO) 1.4 % (0.0-7.0); HEMATOCRIT 38.2 % (31.2-41.9); HEMOGLOBIN 12.8 g/dL (10.9-14.3); LYMPHOCYTES % (AUTO) 9.5 % (20.5-51.5); MEAN CORPUSCULAR HEMOGLOBIN 31.6 uug (24.7-32.8); MEAN CORPUSCULAR HGB CONC 34 g/dL (32.3-35.6); MONOCYTES % (AUTO) 7.4 % (0.0-11.0); NEUTROPHILS # (AUTO) 5.4 K/uL (1.8-8.9); PLATELET COUNT (AUTO) 85 K/uL (179-408); RED BLOOD CELL COUNT(AUTO) 4.06 MIL/uL (3.63-4.92); WHITE BLOOD COUNT (AUTO) 6.7 K/uL (3.8-11.8)
[2019-05-07 07:07] LABS: CARBON DIOXIDE 27 mmol/L (21-32); CHLORIDE 103 mmol/L (98-107); CHOLESTEROL 144 mg/dL (<200); CREATININE 0.9 mg/dL (0.6-1.3); GLUCOSE 96 mg/dL (74-106); HDL CHOLESTEROL 73 mg/dL (40-60); MAGNESIUM 2.2 mg/dL (1.8-2.4); PHOSPHOROUS 3.2 mg/dL (2.5-4.9); POTASSIUM 4.1 mmol/L (3.5-5.1); TRIGLYCERIDES 95 MG/DL (30-150); UREA NITROGEN, BLOOD 12 mg/dL (7-18)
--- NOTE | 2019-05-07 07:10 | NUR ---
received patient in Bed, awake and verbally responsive. No signs of Distress noted. No SOB. No complain of Pain or discomfort noted. Right Arm Sling intact, Kept the call light within easy reach. Kept comfortable. Will continue to monitor.
[2019-05-07] MEDS: DONEPEZIL 10 MG TABLET PO SCH (08:50)
[2019-05-07] MEDS: OXYBUTYNIN XL 5 MG TABSR PO SCH (08:50)
[2019-05-07] MEDS: AMLODIPINE 5 MG TABLET PO SCH (08:51)
[2019-05-07] MEDS: ENOXAPARIN SODIUM 40 MG/0.4 ML DISP.SYRIN SQ SCH (08:54)
[2019-05-07 09:14] LABS: BASOPHILS % (MANUAL) 2 % (0-2); EOSINOPHILS % (MANUAL) 4 % (0-8); LYMPHOCYTES % (MANUAL) 6 % (20-40); MONOCYTES % (MANUAL) 3 % (2-10); NEUTROPHILS % (MANUAL) 85 % (42-75)
[2019-05-07] MEDS: MORPHINE SULFATE 2 MG/1 ML DISP.SYRIN IV PRN (10:58)
[2019-05-07 11:38] VITALS: BP 143/63
[2019-05-07] MEDS ORDERED: HYDR-3326 PO (12:38)
--- NOTE | 2019-05-07 14:00 | NUR ---
Discharge Order today was cancelled. patient will stay in the Hospital tonight.
[2019-05-07 15:30] VITALS: BP 105/53
--- NOTE | 2019-05-07 18:47 | NUR ---
Patient in Bed, awake and verbally responsive with episode of forgetfulness. No signs of distress noted. No SOB. Pain Medication given as ordered. PT evaluated this morning, patient still not stable to walk by herself and afraid to ambulate. RP daughter is aware. All needs attended and met. Will Endorse to Oncoming Nurse.
[2019-05-07 19:46] VITALS: BP 113/64
--- NOTE | 2019-05-07 20:00 | NUR ---
Patient received into care, sitting up in bed, resting comfortably. Patient is alert/oriented x2 with periods of confusion. Patient has no complaints of pain at this time. All safety and fall precaution measures are in place. Call light and personal items are within reach at all times. Will continue to monitor throughout shift.
[2019-05-07] MEDS: MIRTAZAPINE 15 MG TABLET PO SCH (21:11)
[2019-05-07] MEDS: MEMANTINE HCL 5 MG TABLET PO SCH (21:11)
[2019-05-07] MEDS: AMITRIPTYLINE HCL 25 MG TABLET PO SCH (21:11)
[2019-05-07] MEDS: HYDROCODONE/APAP 5-325MG TABLET PO PRN (21:16)
[2019-05-08 04:46] VITALS: BP 157/61
[2019-05-08] MEDS: LEVOTHYROXINE SODIUM 50 MCG TABLET PO SCH (06:47)
[2019-05-08] MEDS: HYDROCODONE/APAP 5-325MG TABLET PO PRN (06:47)
[2019-05-08] MEDS: PANTOPRAZOLE SODIUM 40 MG TABLET.DR PO SCH (06:47)
--- NOTE | 2019-05-08 06:48 | NUR ---
Patient slept comfortably throughout night with incidents of pain addressed with prescribed analgesics. All prescribed medication provided as ordered and tolerated well with no adverse side effects verbalized or observed. All safety and fall precaution measures remain in place. Call light and personal items remain within reach at all times.
--- NOTE | 2019-05-08 07:00 | NUR ---
Received patient in bed, calm and verbally responsive. No signs of Distress noted. No SOB. No complain of pain or discomfort noted. Right Arm Sling Intact. Call light within easy reach. All needs attended and met. Will continue to monitor.
[2019-05-08] MEDS: OXYBUTYNIN XL 5 MG TABSR PO SCH (08:11)
[2019-05-08] MEDS: DONEPEZIL 10 MG TABLET PO SCH (08:11)
[2019-05-08] MEDS: AMLODIPINE 5 MG TABLET PO SCH (08:11)
[2019-05-08 11:40] VITALS: BP 104/51
[2019-05-08 15:55] VITALS: BP 110/55
[2019-05-08] MEDS: MORPHINE SULFATE 2 MG/1 ML DISP.SYRIN IV PRN (16:35)
--- NOTE | 2019-05-08 18:22 | NUR ---
Patient in Bed, awake and verbally responsive. No signs of distress noted. No SOB. Pain medication given as ordered. All due medications given as ordered. kept clean and comfortable. Will endorse to Oncoming Nurse.
--- NOTE | 2019-05-08 20:00 | NUR ---
Patient received into care, sleeping in bed, resting comfortably. Patient rouses to voice and touch, and has no complaints of pain or discomfort at this time. All safety and fall precaution measures are in place. Call light and personal items are within reach at all times. Will continue to monitor.
[2019-05-08 20:07] VITALS: BP 142/65
[2019-05-08] MEDS: AMITRIPTYLINE HCL 25 MG TABLET PO SCH (21:20)
[2019-05-08] MEDS: MEMANTINE HCL 5 MG TABLET PO SCH (21:20)
[2019-05-08] MEDS: MIRTAZAPINE 15 MG TABLET PO SCH (21:20)
[2019-05-09 05:16] VITALS: BP 123/75
--- NOTE | 2019-05-09 06:21 | NUR ---
Patient slept comfortably throughout night with no complaints of pain or discomfort. Patient was compliant with all aspects of care and medication regime. Patient voided three times, with the last void having a pungent, musty smell. All nursing needs were met promptly. Patient kept warm and dry. All safety and fall precaution measures remain in place. Call light and personal items are within reach at all times.
[2019-05-09] MEDS: LEVOTHYROXINE SODIUM 50 MCG TABLET PO SCH (06:31)
[2019-05-09] MEDS: PANTOPRAZOLE SODIUM 40 MG TABLET.DR PO SCH (06:31)
--- NOTE | 2019-05-09 07:30 | NUR ---
Patient calm and comfortable resting in bed with no signs of distress; patient will continue to be monitored.
[2019-05-09] MEDS: AMLODIPINE 5 MG TABLET PO SCH (09:13)
[2019-05-09] MEDS: OXYBUTYNIN XL 5 MG TABSR PO SCH (09:13)
[2019-05-09] MEDS: DONEPEZIL 10 MG TABLET PO SCH (09:16)
[2019-05-09] MEDS ORDERED: CIPROFLOXACIN HCL 250 MG TABLET PO SCH (09:30)
[2019-05-09] MEDS ORDERED: CIPR-262 PO (10:06)
[2019-05-09 10:59] LABS: *BILIRUBIN,URIN NEGATIVE (NEGATIVE); *CLARITY,URINE CLEAR (CLEAR); *COLOR,URINE YELLOW (YELLOW); *KETONES,URINE NEGATIVE (NEGATIVE); LEUKOCYTE ESTERASE ,URINE 2+ (NEGATIVE); NITRITE, URINE NEGATIVE (NEGATIVE); PH,URINE 7.5 (5.0-8.0); UGLUCOSE NEGATIVE (NEGATIVE)
[2019-05-09 11:00] LABS: *BLOOD, URINE TRACE (NEGATIVE)
[2019-05-09 11:16] LABS: RBC,URINE 0-3 /HPF (0-3)
[2019-05-09 11:17] LABS: SQUAMOUS EPITHELIAL CELL,UR FEW /HPF (NONE SEEN); WBC,URINE 20-50 /HPF (0-3)
[2019-05-09 11:18] LABS: BACTERIA,URINE FEW /HPF (NONE SEEN)
[2019-05-09 11:24] VITALS: BP 102/47
[2019-05-09] MEDS: HYDROCODONE/APAP 5-325MG TABLET PO PRN (15:23)
[2019-05-09 15:51] VITALS: BP 94/55
--- NOTE | 2019-05-09 16:47 | NUR ---
Patient discharged to [facility] with stable vital signs and no signs of distress; Report given to RN Welder Fitter Helper Shwetha ;Patient and patient daughter educated on diagnosis and rehabilitation purposes. Daughter and patient verbalized understanding.
== END 2019-05-09 16:30 | DRG 563 ==
LOC: ER 23:34 → MEDSURG3 05-06 02:01
PROVIDERS: ADMIT Internal Medicine; ATTEND Hospitalist
PROC: 2W38XYZ Immobilization of Right Upper Extremity using Other Device (ICD-10-PCS; principal; 2019-05-06)
DX: S42.321A Displaced transverse fracture of shaft of humerus, right arm, initial encounter for closed fracture (principal); N39.0 Urinary tract infection, site not specified; W01.0XXA Fall on same level from slipping, tripping and stumbling without subsequent striking against object, initial encounter; Y93.E8 Activity, other personal hygiene; Y92.092 Bedroom in other non-institutional residence as the place of occurrence of the external cause; G30.9 Alzheimer's disease, unspecified; F02.80 Dementia in other diseases classified elsewhere, unspecified severity, without behavioral disturbance, psychotic disturbance, mood disturbance, and anxiety; G89.11 Acute pain due to trauma; E03.9 Hypothyroidism, unspecified; F32.9 Major depressive disorder, single episode, unspecified; Z79.899 Other long term (current) drug therapy; Z79.890 Hormone replacement therapy; Z79.82 Long term (current) use of aspirin; J98.4 Other disorders of lung; I10 Essential (primary) hypertension; Z66 Do not resuscitate
CPT/HCPCS: 36415; 70030-TC; 71045; 73020; 83735; 84100; 85025; 85730; 87077; 87086; 93005; A4663; C1758; G0378; J1650; J2270; Q0162

== ENCOUNTER 2019-05-21 21:23 | Inpatient (IN) | payer MEDICARE ==
[~2019-05-21] VITALS: Ht 165.1 cm; Wt 78.0 kg
[~2019-05-21 21:23] MED LIST changes: +AMIT25TA9 PO; +ASPI-866 PO; -CEPH500C2 PO; +CIPR-262 PO; +DIPH25CA83 PO; +DONE10TA44 PO; +HYDR-3326 PO; +MELA5TAB PO; +MEMA10TA PO; +MIRT15TA7 PO; +OXYB10TA4 PO; +SENN-18 PO
[2019-05-21] MEDS ORDERED: IV NORMAL SALINE 1000 ML BAG IV ONE (22:00)
[2019-05-21 22:28] LABS: BASOPHILS % (AUTO) 0.1 % (0.0-2.0); HEMATOCRIT 37.1 % (31.2-41.9); HEMOGLOBIN 12.4 g/dL (10.9-14.3); LYMPHOCYTES # (AUTO) 0.7 K/uL (20.0-40.0); LYMPHOCYTES % (AUTO) 2.7 % (20.5-51.5); MEAN CORPUSCULAR HEMOGLOBIN 30.9 uug (24.7-32.8); MEAN CORPUSCULAR HGB CONC 34 g/dL (32.3-35.6); MEAN CORPUSCULAR VOLUME 92.3 fL (75.5-95.3); MONOCYTES # (AUTO) 1.4 K/uL (2.0-10.0); MONOCYTES % (AUTO) 5.5 % (0.0-11.0); NEUTROPHILS # (AUTO) 22.6 K/uL (1.8-8.9); NEUTROPHILS % (AUTO) 91.7 % (38.5-71.5); PLATELET COUNT (AUTO) 229 K/uL (179-408); RED BLOOD CELL COUNT(AUTO) 4.02 MIL/uL (3.63-4.92); WHITE BLOOD COUNT (AUTO) 24.7 K/uL (3.8-11.8)
[2019-05-21] MEDS ORDERED: PIPE3.379 IV (22:30)
[2019-05-21] MEDS ORDERED: DONE10TA11 PO (22:30)
[2019-05-21] MEDS ORDERED: NA P133E RC (22:30)
[2019-05-21] MEDS ORDERED: BISA10SU61 RC (22:30)
[2019-05-21 22:34] LABS: CARBON DIOXIDE 25 mmol/L (21-32); CHLORIDE 102 mmol/L (98-107); CREATININE 1.4 mg/dL (0.6-1.3); GLUCOSE 121 mg/dL (74-106); POTASSIUM 4.7 mmol/L (3.5-5.1); UREA NITROGEN, BLOOD 51 mg/dL (7-18)
[2019-05-21 22:44] LABS: ALANINE AMINOTRANSFERASE 202 U/L (14-59); ALKALINE PHOSPHATASE 199 U/L (50-136); ASPARTATE AMINOTRANSFERASE 212 U/L (15-37); BILIRUBIN,DIRECT 0.2 mg/dL (0.0-0.2); BILIRUBIN,TOTAL 0.7 mg/dL (0.2-1.0); TOTAL PROTEIN, SERUM 5.4 g/dL (6.4-8.2)
[2019-05-21 22:51] LABS: BAND % (MANUAL) 12 % (0-10); LYMPHOCYTES % (MANUAL) 2 % (20-40); MONOCYTES % (MANUAL) 8 % (2-10); NEUTROPHILS % (MANUAL) 78 % (42-75)
[2019-05-21] MEDS ORDERED: VANCOMYCIN IV 1,000 MG in IV DEXTROSE 5% 250 ML IV ONE (23:15)
[2019-05-21] MEDS ORDERED: PIPERACILLIN SODIUM/TAZOBACTAM 3.375 G in IV DEXTROSE 5% 50 ML IV ONE (23:15)
[2019-05-21 23:30] LABS: *BILIRUBIN,URIN 1+ (NEGATIVE); *COLOR,URINE AMBER (YELLOW); *KETONES,URINE NEGATIVE (NEGATIVE); *UROBILINOGEN,URINE 0.2 E.U./dl (NORMAL); LEUKOCYTE ESTERASE ,URINE TRACE (NEGATIVE); NITRITE, URINE NEGATIVE (NEGATIVE); PH,URINE 5.5 (5.0-8.0); UGLUCOSE NEGATIVE (NEGATIVE)
[2019-05-21 23:31] LABS: *BLOOD, URINE TRACE (NEGATIVE); *CLARITY,URINE HAZY (CLEAR)
[2019-05-21 23:38] LABS: BACTERIA,URINE FEW /HPF (NONE SEEN); SQUAMOUS EPITHELIAL CELL,UR MANY /HPF (NONE SEEN)
[2019-05-22] MEDS ORDERED: MAGNESIUM HYDROXIDE 30 ML LIQUID UDC PO PRN (00:30)
[2019-05-22] MEDS ORDERED: HYDROCODONE/APAP 5-325MG TABLET PO PRN (00:30)
[2019-05-22] MEDS ORDERED: CLONIDINE HCL 0.1 MG TABLET PO PRN (00:30)
[2019-05-22] MEDS ORDERED: LEVOFLOXACIN 750MG/D5W 750 MG in PREMIXED 1 EACH IV SCH (00:30)
[2019-05-22] MEDS ORDERED: ONDANSETRON 4 MG/2 ML VIAL IV PRN (00:30)
[2019-05-22] MEDS ORDERED: Z GUARD REMEDY PASTE 57 GM TUBE TOP PRN (00:30)
[2019-05-22 01:11] VITALS: BP 142/66
[2019-05-22 04:00] VITALS: BP 127/64
[2019-05-22] MEDS: IV 1/2NS 1000 ML 1,000 ML IV PRN ×2 (04:49→21:05)
[2019-05-22] MEDS ORDERED: PIPERACILLIN SODIUM/TAZOBACTAM 3.375 G in IV DEXTROSE 5% 50 ML IV SCH ×4 (06:00)
[2019-05-22] MEDS ORDERED: PIPERACILLIN/TAZO 2.25 G in IV DEXTROSE 5% 50 ML IV SCH (06:00)
[2019-05-22 06:22] LABS: BASOPHILS # (AUTO) 0.1 K/uL (0.0-8.0); BASOPHILS % (AUTO) 0.2 % (0.0-2.0); EOSINOPHILS % (AUTO) 0.1 % (0.0-7.0); HEMOGLOBIN 12.5 g/dL (10.9-14.3); LYMPHOCYTES # (AUTO) 0.7 K/uL (20.0-40.0); LYMPHOCYTES % (AUTO) 2.5 % (20.5-51.5); MEAN CORPUSCULAR HEMOGLOBIN 30.6 uug (24.7-32.8); MEAN CORPUSCULAR HGB CONC 33 g/dL (32.3-35.6); MEAN CORPUSCULAR VOLUME 92.9 fL (75.5-95.3); MONOCYTES # (AUTO) 1.3 K/uL (2.0-10.0); MONOCYTES % (AUTO) 4.7 % (0.0-11.0); NEUTROPHILS # (AUTO) 26.4 K/uL (1.8-8.9); NEUTROPHILS % (AUTO) 92.5 % (38.5-71.5); PLATELET COUNT (AUTO) 224 K/uL (179-408); RED BLOOD CELL COUNT(AUTO) 4.09 MIL/uL (3.63-4.92); WHITE BLOOD COUNT (AUTO) 28.5 K/uL (3.8-11.8)
[2019-05-22] MEDS: LEVOTHYROXINE SODIUM 50 MCG TABLET PO SCH (06:38)
[2019-05-22] MEDS: PANTOPRAZOLE SODIUM 40 MG TABLET.DR PO SCH (06:38)
[2019-05-22 06:40] LABS: BILIRUBIN,TOTAL 0.7 mg/dL (0.2-1.0); CREATININE 1.1 mg/dL (0.6-1.3); MAGNESIUM 2.4 mg/dL (1.8-2.4); POTASSIUM 4.2 mmol/L (3.5-5.1); TOTAL PROTEIN, SERUM 5.4 g/dL (6.4-8.2)
[2019-05-22 06:44] LABS: THYROID STIMULATING HORMONE 1.377 mIU/mL (0.358-3.740)
[2019-05-22] MEDS: ASPIRIN EC 81 MG TABLET.DR PO SCH (08:12)
[2019-05-22] MEDS: AMLODIPINE 5 MG TABLET PO SCH (08:12)
[2019-05-22] MEDS: OXYBUTYNIN XL 5 MG TABSR PO SCH (08:13)
[2019-05-22] MEDS: DONEPEZIL 10 MG TABLET PO SCH (08:13)
[2019-05-22] MEDS ORDERED: DIATR MEGLU/DIATRIZOATE SODIUM 30 ML SOLUTION ONE (11:18)
[2019-05-22] MEDS ORDERED: IOHEXOL 300MG/ML 100 ML INFUS..BTL ONE (11:18)
[2019-05-22] MEDS ORDERED: SWABABLE VALVE TRANSFER SET EA MC ONE (11:19)
[2019-05-22] MEDS ORDERED: IV NORMAL SALINE 250 ML IV ONE (11:19)
[2019-05-22 11:40] VITALS: BP 136/69
[2019-05-22] MEDS: ACETAMINOPHEN 325 MG TABLET PO PRN (12:17)
[2019-05-22] MEDS: PIPERACILLIN/TAZOBACTAM/D5W 3.375 G in IV DEXTROSE 5% 50 ML IV SCH ×2 (14:07→21:04)
[2019-05-22 16:00] VITALS: BP 128/74
[2019-05-22 20:10] VITALS: BP 127/79
[2019-05-22] MEDS: SENNOSIDES 1 TABLET PO SCH (21:05)
[2019-05-22] MEDS: MEMANTINE HCL 10 MG TABLET PO SCH (21:05)
[2019-05-22] MEDS: AMITRIPTYLINE HCL 25 MG TABLET PO SCH (21:05)
[2019-05-22] MEDS: MIRTAZAPINE 15 MG TABLET PO SCH (21:05)
[2019-05-23] VITALS: BP 120/72
[2019-05-23 04:00] VITALS: BP 127/70
[2019-05-23] MEDS: MORPHINE SULFATE 2 MG/1 ML DISP.SYRIN IV PRN (04:53)
[2019-05-23] MEDS: PIPERACILLIN/TAZOBACTAM/D5W 3.375 G in IV DEXTROSE 5% 50 ML IV SCH ×3 (05:04→21:43)
[2019-05-23] MEDS: PANTOPRAZOLE SODIUM 40 MG TABLET.DR PO SCH (06:28)
[2019-05-23] MEDS: LEVOTHYROXINE SODIUM 50 MCG TABLET PO SCH (06:28)
[2019-05-23 06:44] LABS: BASOPHILS # (AUTO) 0.1 K/uL (0.0-8.0); HEMATOCRIT 41.8 % (31.2-41.9); LYMPHOCYTES # (AUTO) 0.5 K/uL (20.0-40.0)
[2019-05-23 06:47] LABS: BASOPHILS % (AUTO) 0.2 % (0.0-2.0); EOSINOPHILS % (AUTO) 0.1 % (0.0-7.0); LYMPHOCYTES % (AUTO) 1.2 % (20.5-51.5); MEAN CORPUSCULAR HGB CONC 34 g/dL (32.3-35.6); MEAN CORPUSCULAR VOLUME 92.6 fL (75.5-95.3); MONOCYTES # (AUTO) 0.8 K/uL (2.0-10.0); NEUTROPHILS % (AUTO) 96.5 % (38.5-71.5); PLATELET COUNT (AUTO) 265 K/uL (179-408); RED BLOOD CELL COUNT(AUTO) 4.51 MIL/uL (3.63-4.92)
[2019-05-23 06:57] LABS: WHITE BLOOD COUNT (AUTO) 40.3 K/uL (3.8-11.8)
[2019-05-23 06:58] LABS: ALANINE AMINOTRANSFERASE 231 U/L (14-59); ALKALINE PHOSPHATASE 204 U/L (50-136); ASPARTATE AMINOTRANSFERASE 214 U/L (15-37); BILIRUBIN,TOTAL 0.6 mg/dL (0.2-1.0); CARBON DIOXIDE 23 mmol/L (21-32); CHLORIDE 98 mmol/L (98-107); CREATININE 1.4 mg/dL (0.6-1.3); GLUCOSE 142 mg/dL (74-106); MAGNESIUM 2.7 mg/dL (1.8-2.4); PHOSPHOROUS 4.1 mg/dL (2.5-4.9); POTASSIUM 4.7 mmol/L (3.5-5.1); TOTAL PROTEIN, SERUM 5.8 g/dL (6.4-8.2); UREA NITROGEN, BLOOD 59 mg/dL (7-18)
[2019-05-23 07:25] LABS: BAND % (MANUAL) 25 % (0-10); EOSINOPHILS % (MANUAL) 1 % (0-8); LYMPHOCYTES % (MANUAL) 2 % (20-40); METAMYELOCYTES % 2 % (0-1); MONOCYTES % (MANUAL) 2 % (2-10); MYELOCYTES % 1 % (0-0); NEUTROPHILS % (MANUAL) 67 % (42-75)
[2019-05-23 09:00] VITALS: BP 119/66
[2019-05-23] MEDS: ASPIRIN EC 81 MG TABLET.DR PO SCH (09:00)
[2019-05-23] MEDS: OXYBUTYNIN XL 5 MG TABSR PO SCH (09:00)
[2019-05-23] MEDS: AMLODIPINE 5 MG TABLET PO SCH (09:00)
[2019-05-23] MEDS: DONEPEZIL 10 MG TABLET PO SCH (09:00)
[2019-05-23] MEDS: ACETAMINOPHEN 325 MG TABLET PO PRN (09:07)
[2019-05-23] MEDS: IV 1/2NS 1000 ML 1,000 ML IV PRN ×2 (11:01→23:59)
[2019-05-23] MEDS ORDERED: MIRALAX 17 GM POWD.PACK PO ONE (11:15)
[2019-05-23] MEDS ORDERED: MINERAL OIL FLEET ENEMA 133 ML BOTTLE RC ONE (11:15)
[2019-05-23 11:24] VITALS: BP 122/66
[2019-05-23 15:12] VITALS: BP 130/77
[2019-05-23 20:12] VITALS: BP 124/71
[2019-05-23] MEDS: SENNOSIDES 1 TABLET PO SCH (21:00)
[2019-05-23] MEDS: MIRTAZAPINE 15 MG TABLET PO SCH (21:00)
[2019-05-23] MEDS: MEMANTINE HCL 10 MG TABLET PO SCH (21:00)
[2019-05-23] MEDS: AMITRIPTYLINE HCL 25 MG TABLET PO SCH (21:00)
[2019-05-24 00:59] VITALS: BP 124/70
[2019-05-24 04:00] VITALS: BP 127/75
[2019-05-24] MEDS: PIPERACILLIN/TAZOBACTAM/D5W 3.375 G in IV DEXTROSE 5% 50 ML IV SCH ×3 (05:14→21:41)
[2019-05-24] MEDS: LEVOTHYROXINE SODIUM 50 MCG TABLET PO SCH (06:39)
[2019-05-24] MEDS: PANTOPRAZOLE SODIUM 40 MG TABLET.DR PO SCH (06:39)
[2019-05-24 06:42] LABS: HEMOGLOBIN 14.2 g/dL (10.9-14.3)
[2019-05-24 06:52] LABS: BASOPHILS # (AUTO) 0.1 K/uL (0.0-8.0); BASOPHILS % (AUTO) 0.3 % (0.0-2.0); EOSINOPHILS % (AUTO) 0.1 % (0.0-7.0); LYMPHOCYTES # (AUTO) 0.6 K/uL (20.0-40.0); LYMPHOCYTES % (AUTO) 1.4 % (20.5-51.5); MEAN CORPUSCULAR HEMOGLOBIN 30.7 uug (24.7-32.8); MEAN CORPUSCULAR HGB CONC 33 g/dL (32.3-35.6); MEAN CORPUSCULAR VOLUME 92.8 fL (75.5-95.3); MONOCYTES # (AUTO) 0.7 K/uL (2.0-10.0); MONOCYTES % (AUTO) 1.7 % (0.0-11.0); NEUTROPHILS # (AUTO) 39.4 K/uL (1.8-8.9); NEUTROPHILS % (AUTO) 96.5 % (38.5-71.5); PLATELET COUNT (AUTO) 242 K/uL (179-408); RED BLOOD CELL COUNT(AUTO) 4.63 MIL/uL (3.63-4.92)
[2019-05-24 06:55] LABS: WHITE BLOOD COUNT (AUTO) 40.8 K/uL (3.8-11.8)
[2019-05-24 06:57] LABS: ALANINE AMINOTRANSFERASE 146 U/L (14-59); ALKALINE PHOSPHATASE 159 U/L (50-136); ASPARTATE AMINOTRANSFERASE 102 U/L (15-37); BILIRUBIN,TOTAL 0.6 mg/dL (0.2-1.0); CARBON DIOXIDE 20 mmol/L (21-32); CHLORIDE 98 mmol/L (98-107); CREATININE 1.8 mg/dL (0.6-1.3); GLUCOSE 144 mg/dL (74-106); MAGNESIUM 2.8 mg/dL (1.8-2.4); PHOSPHOROUS 4.4 mg/dL (2.5-4.9); TOTAL PROTEIN, SERUM 5.4 g/dL (6.4-8.2)
[2019-05-24 07:06] LABS: UREA NITROGEN, BLOOD 80 mg/dL (7-18)
[2019-05-24] MEDS: AMLODIPINE 5 MG TABLET PO SCH (09:00)
[2019-05-24] MEDS: DONEPEZIL 10 MG TABLET PO SCH (09:00)
[2019-05-24] MEDS: ASPIRIN EC 81 MG TABLET.DR PO SCH (09:00)
[2019-05-24] MEDS: OXYBUTYNIN XL 5 MG TABSR PO SCH (09:00)
[2019-05-24] MEDS ORDERED: HYDROCODONE/APAP 5-325MG TABLET PO PRN (09:30)
[2019-05-24 11:23] LABS: BAND % (MANUAL) 5 % (0-10); METAMYELOCYTES % 1 % (0-1); MONOCYTES % (MANUAL) 2 % (2-10); MYELOCYTES % 1 % (0-0); NEUTROPHILS % (MANUAL) 91 % (42-75)
[2019-05-24 11:42] VITALS: BP 119/71
[2019-05-24] MEDS: VANCOMYCIN FOR PO/GT/NG USE PO SCH ×3 (12:00→23:38)
[2019-05-24] MEDS: IV NS 1000 ML 1,000 ML IV PRN (13:19)
[2019-05-24 13:39] LABS: LYMPHOCYTES % (MANUAL) 0 % (20-40)
[2019-05-24 15:54] VITALS: BP 128/77
[2019-05-24] MEDS: OSMOLITE 1.2 CAL 1,000 ML LIQUID GT PRN (16:49)
[2019-05-24 20:00] VITALS: BP 130/68
[2019-05-24] MEDS: SENNOSIDES 1 TABLET PO SCH (21:20)
[2019-05-24] MEDS: MIRTAZAPINE 15 MG TABLET PO SCH (21:20)
[2019-05-24] MEDS: MEMANTINE HCL 10 MG TABLET PO SCH (21:20)
[2019-05-24] MEDS: AMITRIPTYLINE HCL 25 MG TABLET PO SCH (21:25)
[2019-05-24] MEDS: MORPHINE SULFATE 2 MG/1 ML DISP.SYRIN IV PRN (21:38)
[2019-05-25 00:30] VITALS: BP 157/78
[2019-05-25] MEDS: IV NS 1000 ML 1,000 ML IV PRN ×2 (02:14→15:11)
[2019-05-25 04:00] VITALS: BP 146/76
[2019-05-25] MEDS: PIPERACILLIN/TAZOBACTAM/D5W 3.375 G in IV DEXTROSE 5% 50 ML IV SCH ×3 (05:17→21:01)
[2019-05-25] MEDS: VANCOMYCIN FOR PO/GT/NG USE PO SCH ×3 (05:17→17:03)
[2019-05-25] MEDS: PANTOPRAZOLE SODIUM 40 MG TABLET.DR PO SCH (06:03)
[2019-05-25 06:05] LABS: BASOPHILS # (AUTO) 0.1 K/uL (0.0-8.0); BASOPHILS % (AUTO) 0.4 % (0.0-2.0); HEMATOCRIT 39.6 % (31.2-41.9); LYMPHOCYTES # (AUTO) 0.4 K/uL (20.0-40.0); LYMPHOCYTES % (AUTO) 1.2 % (20.5-51.5); MEAN CORPUSCULAR HEMOGLOBIN 30.5 uug (24.7-32.8); MEAN CORPUSCULAR HGB CONC 33 g/dL (32.3-35.6); MEAN CORPUSCULAR VOLUME 92.5 fL (75.5-95.3); MONOCYTES # (AUTO) 0.8 K/uL (2.0-10.0); MONOCYTES % (AUTO) 2.8 % (0.0-11.0); NEUTROPHILS # (AUTO) 28.2 K/uL (1.8-8.9); NEUTROPHILS % (AUTO) 95.6 % (38.5-71.5); PLATELET COUNT (AUTO) 206 K/uL (179-408); RED BLOOD CELL COUNT(AUTO) 4.27 MIL/uL (3.63-4.92); WHITE BLOOD COUNT (AUTO) 29.5 K/uL (3.8-11.8)
[2019-05-25 06:06] LABS: ALANINE AMINOTRANSFERASE 121 U/L (14-59); ALKALINE PHOSPHATASE 147 U/L (50-136); ASPARTATE AMINOTRANSFERASE 91 U/L (15-37); BILIRUBIN,TOTAL 0.5 mg/dL (0.2-1.0); CARBON DIOXIDE 22 mmol/L (21-32); CHLORIDE 104 mmol/L (98-107); CREATININE 1.5 mg/dL (0.6-1.3); GLUCOSE 293 mg/dL (74-106); MAGNESIUM 2.7 mg/dL (1.8-2.4); PHOSPHOROUS 3.3 mg/dL (2.5-4.9); TOTAL PROTEIN, SERUM 4.7 g/dL (6.4-8.2)
[2019-05-25 06:35] LABS: UREA NITROGEN, BLOOD 84 mg/dL (7-18)
[2019-05-25] MEDS: LEVOTHYROXINE SODIUM 50 MCG TABLET PO SCH (06:37)
[2019-05-25 07:32] LABS: BAND % (MANUAL) 1 % (0-10); LYMPHOCYTES % (MANUAL) 4 % (20-40); MONOCYTES % (MANUAL) 5 % (2-10); NEUTROPHILS % (MANUAL) 90 % (42-75)
[2019-05-25] MEDS: ASPIRIN EC 81 MG TABLET.DR PO SCH (08:12)
[2019-05-25] MEDS: OXYBUTYNIN XL 5 MG TABSR PO SCH (08:12)
[2019-05-25] MEDS: DONEPEZIL 10 MG TABLET PO SCH (08:12)
[2019-05-25] MEDS: AMLODIPINE 5 MG TABLET PO SCH (08:13)
[2019-05-25 11:28] VITALS: BP 116/66
[2019-05-25 15:14] VITALS: BP 123/69
[2019-05-25] MEDS: OSMOLITE 1.2 CAL 1,000 ML LIQUID GT PRN (17:17)
[2019-05-25 20:00] VITALS: BP 129/72
[2019-05-25] MEDS: MIRTAZAPINE 15 MG TABLET PO SCH (20:59)
[2019-05-25] MEDS: MEMANTINE HCL 10 MG TABLET PO SCH (20:59)
[2019-05-25] MEDS: AMITRIPTYLINE HCL 25 MG TABLET PO SCH (20:59)
[2019-05-25] MEDS: SENNOSIDES 1 TABLET PO SCH ×2 (21:00→22:22)
[2019-05-25] MEDS: MORPHINE SULFATE 2 MG/1 ML DISP.SYRIN IV PRN (21:05)
[2019-05-26] VITALS: BP 132/64
[2019-05-26 04:00] VITALS: BP 140/64
[2019-05-26] MEDS: IV NS 1000 ML 1,000 ML IV PRN ×2 (04:36→17:20)
[2019-05-26] MEDS: VANCOMYCIN FOR PO/GT/NG USE PO SCH ×4 (05:18→17:00)
[2019-05-26] MEDS: PIPERACILLIN/TAZOBACTAM/D5W 3.375 G in IV DEXTROSE 5% 50 ML IV SCH (05:19)
[2019-05-26] MEDS: MORPHINE SULFATE 2 MG/1 ML DISP.SYRIN IV PRN ×2 (05:22→16:55)
[2019-05-26] MEDS: PANTOPRAZOLE SODIUM 40 MG TABLET.DR PO SCH (06:11)
[2019-05-26 06:26] LABS: BASOPHILS # (AUTO) 0.1 K/uL (0.0-8.0); BASOPHILS % (AUTO) 0.3 % (0.0-2.0); EOSINOPHILS % (AUTO) 0.1 % (0.0-7.0); HEMATOCRIT 38.4 % (31.2-41.9); HEMOGLOBIN 12.7 g/dL (10.9-14.3); LYMPHOCYTES # (AUTO) 0.4 K/uL (20.0-40.0); LYMPHOCYTES % (AUTO) 1.5 % (20.5-51.5); MEAN CORPUSCULAR HEMOGLOBIN 30.6 uug (24.7-32.8); MEAN CORPUSCULAR HGB CONC 33 g/dL (32.3-35.6); MEAN CORPUSCULAR VOLUME 92.7 fL (75.5-95.3); MONOCYTES # (AUTO) 1.2 K/uL (2.0-10.0); MONOCYTES % (AUTO) 4.8 % (0.0-11.0); NEUTROPHILS # (AUTO) 23.6 K/uL (1.8-8.9); NEUTROPHILS % (AUTO) 93.3 % (38.5-71.5); PLATELET COUNT (AUTO) 158 K/uL (179-408); RED BLOOD CELL COUNT(AUTO) 4.15 MIL/uL (3.63-4.92); WHITE BLOOD COUNT (AUTO) 25.3 K/uL (3.8-11.8)
[2019-05-26] MEDS: LEVOTHYROXINE SODIUM 50 MCG TABLET PO SCH (06:30)
[2019-05-26 06:36] LABS: BILIRUBIN,DIRECT 0.2 mg/dL (0.0-0.2); BILIRUBIN,TOTAL 0.5 mg/dL (0.2-1.0); MAGNESIUM 2.7 mg/dL (1.8-2.4); PHOSPHOROUS 2.1 mg/dL (2.5-4.9); POTASSIUM 3.8 mmol/L (3.5-5.1); TOTAL PROTEIN, SERUM 4.7 g/dL (6.4-8.2)
[2019-05-26 07:45] LABS: BAND % (MANUAL) 4 % (0-10); LYMPHOCYTES % (MANUAL) 6 % (20-40); MONOCYTES % (MANUAL) 4 % (2-10); NEUTROPHILS % (MANUAL) 86 % (42-75)
[2019-05-26] MEDS: AMLODIPINE 5 MG TABLET PO SCH (09:00)
[2019-05-26] MEDS: ASPIRIN EC 81 MG TABLET.DR PO SCH (09:00)
[2019-05-26] MEDS: DONEPEZIL 10 MG TABLET PO SCH (09:00)
[2019-05-26] MEDS: OXYBUTYNIN XL 5 MG TABSR PO SCH (09:00)
[2019-05-26 11:12] VITALS: BP 121/73
[2019-05-26] MEDS ORDERED: NEUTRA PHOS PACKET PO ONE (15:15)
[2019-05-26 15:42] VITALS: BP 114/67
[2019-05-26] MEDS: OSMOLITE 1.2 CAL 1,000 ML LIQUID GT PRN (17:20)
[2019-05-26 20:15] VITALS: BP 156/72
[2019-05-26] MEDS: MIRTAZAPINE 15 MG TABLET PO SCH (20:21)
[2019-05-26] MEDS: MEMANTINE HCL 10 MG TABLET PO SCH (20:21)
[2019-05-26] MEDS: AMITRIPTYLINE HCL 25 MG TABLET PO SCH (20:21)
[2019-05-26] MEDS: ACETAMINOPHEN 325 MG TABLET PO PRN (20:22)
[2019-05-26] MEDS: SENNOSIDES 1 TABLET PO SCH (20:25)
[2019-05-27 00:11] VITALS: BP 134/78
[2019-05-27] MEDS: VANCOMYCIN FOR PO/GT/NG USE PO SCH ×4 (01:00→18:12)
[2019-05-27 04:00] VITALS: BP 136/74
[2019-05-27] MEDS: IV NS 1000 ML 1,000 ML IV PRN ×2 (05:59→18:25)
[2019-05-27] MEDS: PANTOPRAZOLE SODIUM 40 MG TABLET.DR PO SCH (06:37)
[2019-05-27] MEDS: LEVOTHYROXINE SODIUM 50 MCG TABLET PO SCH (06:38)
[2019-05-27 06:49] LABS: CREATININE 0.8 mg/dL (0.6-1.3); PHOSPHOROUS 2.1 mg/dL (2.5-4.9)
[2019-05-27] MEDS ORDERED: MULTIVITAMINS 5 ML LIQUID UDC GT SCH (09:00)
[2019-05-27] MEDS: ASPIRIN EC 81 MG TABLET.DR PO SCH (09:26)
[2019-05-27] MEDS: OXYBUTYNIN XL 5 MG TABSR PO SCH (09:26)
[2019-05-27] MEDS: DONEPEZIL 10 MG TABLET PO SCH (09:26)
[2019-05-27] MEDS: ZINC SULFATE 220 MG CAPSULE GT SCH (09:26)
[2019-05-27] MEDS: AMLODIPINE 5 MG TABLET PO SCH (09:26)
[2019-05-27] MEDS: MULTIVITAMINS,THERAPEUTIC TABLET GT SCH (09:26)
[2019-05-27] MEDS: MORPHINE SULFATE 2 MG/1 ML DISP.SYRIN IV PRN ×3 (09:30→21:21)
[2019-05-27 10:04] LABS: BASOPHILS % (AUTO) 0.1 % (0.0-2.0); EOSINOPHILS % (AUTO) 0.2 % (0.0-7.0); HEMATOCRIT 37.4 % (31.2-41.9); HEMOGLOBIN 12.1 g/dL (10.9-14.3); LYMPHOCYTES # (AUTO) 0.3 K/uL (20.0-40.0); LYMPHOCYTES % (AUTO) 1.2 % (20.5-51.5); MEAN CORPUSCULAR HEMOGLOBIN 30.9 uug (24.7-32.8); MEAN CORPUSCULAR HGB CONC 33 g/dL (32.3-35.6); MONOCYTES % (AUTO) 3.6 % (0.0-11.0); NEUTROPHILS # (AUTO) 26.8 K/uL (1.8-8.9); NEUTROPHILS % (AUTO) 94.9 % (38.5-71.5); PLATELET COUNT (AUTO) 155 K/uL (179-408); RED BLOOD CELL COUNT(AUTO) 3.94 MIL/uL (3.63-4.92); WHITE BLOOD COUNT (AUTO) 28.2 K/uL (3.8-11.8)
[2019-05-27] MEDS: OSMOLITE 1.2 CAL 1,000 ML LIQUID GT PRN (10:28)
[2019-05-27 10:36] LABS: BAND % (MANUAL) 4 % (0-10); EOSINOPHILS % (MANUAL) 1 % (0-8); MONOCYTES % (MANUAL) 3 % (2-10); NEUTROPHILS % (MANUAL) 92 % (42-75)
[2019-05-27 11:22] VITALS: BP 122/63
[2019-05-27 15:06] VITALS: BP 117/58
[2019-05-27] MEDS ORDERED: NEUTRA PHOS PACKET PO ONE (15:15)
[2019-05-27 20:00] VITALS: BP 109/63
[2019-05-27] MEDS ORDERED: HYDROCODONE/APAP 5-325MG TABLET GT PRN (20:15)
[2019-05-27] MEDS: MEMANTINE HCL 10 MG TABLET GT SCH (21:07)
[2019-05-27] MEDS: SENNOSIDES 1 TABLET GT SCH (21:07)
[2019-05-27] MEDS: AMITRIPTYLINE HCL 25 MG TABLET GT SCH (21:07)
[2019-05-27] MEDS: MIRTAZAPINE 15 MG TABLET GT SCH (21:08)
[2019-05-28] MEDS ORDERED: ACETAMINOPHEN 325 MG TABLET GT PRN (00:30)
[2019-05-28] MEDS: VANCOMYCIN FOR PO/GT/NG USE PO SCH ×4 (00:34→17:26)
[2019-05-28 00:40] VITALS: BP 112/60
[2019-05-28] MEDS: OSMOLITE 1.2 CAL 1,000 ML LIQUID GT PRN ×3 (02:55→22:47)
[2019-05-28 04:00] VITALS: BP 106/60
[2019-05-28] MEDS: MORPHINE SULFATE 2 MG/1 ML DISP.SYRIN IV PRN ×2 (05:58→13:38)
[2019-05-28] MEDS: IV NS 1000 ML 1,000 ML IV PRN (06:13)
[2019-05-28] MEDS: LEVOTHYROXINE SODIUM 50 MCG TABLET GT SCH (06:30)
[2019-05-28 06:52] LABS: CREATININE 0.6 mg/dL (0.6-1.3); MAGNESIUM 2.3 mg/dL (1.8-2.4); PHOSPHOROUS 2.1 mg/dL (2.5-4.9); POTASSIUM 3.9 mmol/L (3.5-5.1)
[2019-05-28 06:54] LABS: EOSINOPHILS % (AUTO) 0.2 % (0.0-7.0); LYMPHOCYTES # (AUTO) 0.4 K/uL (20.0-40.0); MEAN CORPUSCULAR HEMOGLOBIN 31.3 uug (24.7-32.8)
[2019-05-28 07:07] LABS: LYMPHOCYTES % (AUTO) 1.9 % (20.5-51.5); MEAN CORPUSCULAR HGB CONC 33 g/dL (32.3-35.6); MONOCYTES # (AUTO) 0.8 K/uL (2.0-10.0); MONOCYTES % (AUTO) 3.6 % (0.0-11.0); NEUTROPHILS # (AUTO) 20.9 K/uL (1.8-8.9); NEUTROPHILS % (AUTO) 94.3 % (38.5-71.5); PLATELET COUNT (AUTO) 137 K/uL (179-408); RED BLOOD CELL COUNT(AUTO) 3.33 MIL/uL (3.63-4.92); WHITE BLOOD COUNT (AUTO) 22.2 K/uL (3.8-11.8)
[2019-05-28 07:08] LABS: HEMOGLOBIN 10.4 g/dL (10.9-14.3)
[2019-05-28 08:00] VITALS: BP 145/74
[2019-05-28] MEDS: ASPIRIN EC 81 MG TABLET.DR PO SCH (08:43)
[2019-05-28] MEDS: MULTIVITAMINS,THERAPEUTIC TABLET GT SCH (08:43)
[2019-05-28] MEDS: ZINC SULFATE 220 MG CAPSULE GT SCH (08:43)
[2019-05-28] MEDS: DONEPEZIL 10 MG TABLET PO SCH (08:43)
[2019-05-28] MEDS: AMLODIPINE 5 MG TABLET PO SCH (08:43)
[2019-05-28] MEDS: PANTOPRAZOLE ORAL SUSPENSION 40 MG SUSPDR.PKT GT SCH (08:44)
[2019-05-28] MEDS: OXYBUTYNIN XL 5 MG TABSR PO SCH (08:44)
[2019-05-28] MEDS: IV D5W 1000ML 1,000 ML IV PRN ×2 (09:22→22:47)
[2019-05-28] MEDS: POTASSIUM PHOSPHATE MM 7.5 MMOL in IV DEXTROSE 5% 100 ML IV SCH ×2 (10:00→13:08)
[2019-05-28 10:22] LABS: BAND % (MANUAL) 3 % (0-10); LYMPHOCYTES % (MANUAL) 1 % (20-40); METAMYELOCYTES % 4 % (0-1); MONOCYTES % (MANUAL) 3 % (2-10); MYELOCYTES % 2 % (0-0); NEUTROPHILS % (MANUAL) 87 % (42-75)
[2019-05-28 11:06] VITALS: BP 160/63
[2019-05-28 15:36] VITALS: BP 145/73
[2019-05-28 19:40] VITALS: BP 115/60
[2019-05-28] MEDS: SENNOSIDES 1 TABLET GT SCH (21:00)
[2019-05-28] MEDS: MIRTAZAPINE 15 MG TABLET GT SCH (21:11)
[2019-05-28] MEDS: MEMANTINE HCL 10 MG TABLET GT SCH (21:11)
[2019-05-28] MEDS: AMITRIPTYLINE HCL 25 MG TABLET GT SCH (21:18)
[2019-05-29] MEDS: VANCOMYCIN FOR PO/GT/NG USE PO SCH ×4 (00:22→17:58)
[2019-05-29 00:44] VITALS: BP 143/69
[2019-05-29 04:44] VITALS: BP 125/71
[2019-05-29] MEDS: MORPHINE SULFATE 2 MG/1 ML DISP.SYRIN IV PRN (06:06)
[2019-05-29 06:34] LABS: BASOPHILS % (AUTO) 0.2 % (0.0-2.0); EOSINOPHILS # (AUTO) 0.2 K/uL (0.0-0.7); EOSINOPHILS % (AUTO) 0.6 % (0.0-7.0); HEMATOCRIT 39.9 % (31.2-41.9); HEMOGLOBIN 12.8 g/dL (10.9-14.3); LYMPHOCYTES # (AUTO) 0.6 K/uL (20.0-40.0); LYMPHOCYTES % (AUTO) 2.4 % (20.5-51.5); MEAN CORPUSCULAR HEMOGLOBIN 30.3 uug (24.7-32.8); MEAN CORPUSCULAR HGB CONC 32 g/dL (32.3-35.6); MEAN CORPUSCULAR VOLUME 94.5 fL (75.5-95.3); MONOCYTES # (AUTO) 1.1 K/uL (2.0-10.0); NEUTROPHILS # (AUTO) 24.4 K/uL (1.8-8.9); NEUTROPHILS % (AUTO) 92.8 % (38.5-71.5); PLATELET COUNT (AUTO) 146 K/uL (179-408); RED BLOOD CELL COUNT(AUTO) 4.22 MIL/uL (3.63-4.92); WHITE BLOOD COUNT (AUTO) 26.3 K/uL (3.8-11.8)
[2019-05-29] MEDS: LEVOTHYROXINE SODIUM 50 MCG TABLET GT SCH (06:37)
[2019-05-29 06:57] LABS: CARBON DIOXIDE 24 mmol/L (21-32); CHLORIDE 109 mmol/L (98-107); CREATININE 0.5 mg/dL (0.6-1.3); GLUCOSE 268 mg/dL (74-106); MAGNESIUM 2.5 mg/dL (1.8-2.4); POTASSIUM 5.5 mmol/L (3.5-5.1); UREA NITROGEN, BLOOD 30 mg/dL (7-18)
[2019-05-29 08:27] LABS: BAND % (MANUAL) 6 % (0-10); BASOPHILS % (MANUAL) 0 % (0-2); EOSINOPHILS % (MANUAL) 0 % (0-8); LYMPHOCYTES % (MANUAL) 5 % (20-40); MONOCYTES % (MANUAL) 1 % (2-10); NEUTROPHILS % (MANUAL) 88 % (42-75)
[2019-05-29] MEDS: AMLODIPINE 5 MG TABLET PO SCH (09:32)
[2019-05-29] MEDS: ASPIRIN EC 81 MG TABLET.DR PO SCH (09:32)
[2019-05-29] MEDS: MULTIVITAMINS,THERAPEUTIC TABLET GT SCH (09:32)
[2019-05-29] MEDS: PANTOPRAZOLE ORAL SUSPENSION 40 MG SUSPDR.PKT GT SCH (09:32)
[2019-05-29] MEDS: ZINC SULFATE 220 MG CAPSULE GT SCH (09:32)
[2019-05-29] MEDS: DONEPEZIL 10 MG TABLET PO SCH (09:33)
[2019-05-29] MEDS: OXYBUTYNIN XL 5 MG TABSR PO SCH (09:33)
[2019-05-29 11:04] VITALS: BP 121/60
[2019-05-29 15:12] VITALS: BP 109/54
[2019-05-29] MEDS: IV D5W 1000ML 1,000 ML IV PRN (16:26)
[2019-05-29] MEDS: METRONIDAZOLE 500 MG/NS 100ML 500 MG in PREMIXED 1 EACH IV SCH ×2 (16:38→21:09)
[2019-05-29 20:04] VITALS: BP 147/74
[2019-05-29] MEDS: MIRTAZAPINE 15 MG TABLET GT SCH (21:07)
[2019-05-29] MEDS: MEMANTINE HCL 10 MG TABLET GT SCH (21:07)
[2019-05-29] MEDS: SENNOSIDES 1 TABLET GT SCH (21:07)
[2019-05-29] MEDS: AMITRIPTYLINE HCL 25 MG TABLET GT SCH (21:08)
[2019-05-30] VITALS (12 sets, daily range): BP systolic 119–142; BP diastolic 42–81
[2019-05-30] MEDS: VANCOMYCIN FOR PO/GT/NG USE PO SCH ×5 (00:13→23:48)
[2019-05-30] MEDS: METRONIDAZOLE 500 MG/NS 100ML 500 MG in PREMIXED 1 EACH IV SCH ×2 (05:10→13:52)
[2019-05-30 06:23] LABS: BASOPHILS # (AUTO) 0.1 K/uL (0.0-8.0); BASOPHILS % (AUTO) 0.3 % (0.0-2.0); EOSINOPHILS % (AUTO) 0.1 % (0.0-7.0); HEMATOCRIT 41.3 % (31.2-41.9); HEMOGLOBIN 13.2 g/dL (10.9-14.3); LYMPHOCYTES # (AUTO) 0.7 K/uL (20.0-40.0); LYMPHOCYTES % (AUTO) 1.8 % (20.5-51.5); MEAN CORPUSCULAR HEMOGLOBIN 30.8 uug (24.7-32.8); MEAN CORPUSCULAR HGB CONC 32 g/dL (32.3-35.6); MEAN CORPUSCULAR VOLUME 96.4 fL (75.5-95.3); MONOCYTES # (AUTO) 0.8 K/uL (2.0-10.0); MONOCYTES % (AUTO) 2.1 % (0.0-11.0); NEUTROPHILS # (AUTO) 34.5 K/uL (1.8-8.9); NEUTROPHILS % (AUTO) 95.7 % (38.5-71.5); PLATELET COUNT (AUTO) 168 K/uL (179-408); RED BLOOD CELL COUNT(AUTO) 4.28 MIL/uL (3.63-4.92)
[2019-05-30] MEDS: LEVOTHYROXINE SODIUM 50 MCG TABLET GT SCH (06:25)
[2019-05-30 06:37] LABS: ALANINE AMINOTRANSFERASE 105 U/L (14-59); ALKALINE PHOSPHATASE 136 U/L (50-136); ASPARTATE AMINOTRANSFERASE 80 U/L (15-37); BILIRUBIN,TOTAL 0.5 mg/dL (0.2-1.0); CARBON DIOXIDE 23 mmol/L (21-32); CHLORIDE 105 mmol/L (98-107); CREATININE 0.7 mg/dL (0.6-1.3); GLUCOSE 164 mg/dL (74-106); TOTAL PROTEIN, SERUM 5.3 g/dL (6.4-8.2); UREA NITROGEN, BLOOD 28 mg/dL (7-18)
[2019-05-30 07:10] LABS: POTASSIUM 6.2 mmol/L (3.5-5.1)
[2019-05-30 07:11] LABS: WHITE BLOOD COUNT (AUTO) 36.1 K/uL (3.8-11.8)
[2019-05-30] MEDS ORDERED: BISACODYL 10 MG SUPP.RECT RC ONE (07:45)
[2019-05-30] MEDS: MULTIVITAMINS,THERAPEUTIC TABLET GT SCH (08:53)
[2019-05-30] MEDS: PANTOPRAZOLE ORAL SUSPENSION 40 MG SUSPDR.PKT GT SCH (08:54)
[2019-05-30] MEDS: OXYBUTYNIN XL 5 MG TABSR PO SCH (08:54)
[2019-05-30] MEDS: ASPIRIN EC 81 MG TABLET.DR PO SCH (08:54)
[2019-05-30] MEDS: ZINC SULFATE 220 MG CAPSULE GT SCH (08:54)
[2019-05-30] MEDS: DONEPEZIL 10 MG TABLET PO SCH (08:54)
[2019-05-30 08:57] LABS: BAND % (MANUAL) 3 % (0-10); LYMPHOCYTES % (MANUAL) 5 % (20-40); MONOCYTES % (MANUAL) 3 % (2-10); NEUTROPHILS % (MANUAL) 89 % (42-75)
[2019-05-30] MEDS: AMLODIPINE 5 MG TABLET PO SCH (09:06)
[2019-05-30] MEDS ORDERED: FUROSEMIDE 40 MG/4 ML VIAL IV ONE (13:45)
[2019-05-30] MEDS ORDERED: FLUCONAZOLE 200 MG/NS 100ML IV 100 MG in PREMIXED 1 EACH IV SCH (14:45)
[2019-05-30] MEDS ORDERED: [UNRECOGNIZED DRUG - OTHER] XX PRN (15:15)
[2019-05-30] MEDS ORDERED: MEROPENEM 1 G in IV NORMAL SALINE 100 ML IV SCH ×2 (15:15→16:00)
[2019-05-30] MEDS: IV D5/ 0.9% NACL 1,000 ML IV PRN ×2 (15:19→16:15)
[2019-05-30] MEDS ORDERED: PIPERACILLIN/TAZOBACTAM/D5W 3.375 G in PREMIXED 1 EACH IV SCH (16:00)
[2019-05-30] MEDS: MEROPENEM 1 G in IV NORMAL SALINE 100 ML IV SCH ×2 (16:27→23:41)
[2019-05-30] MEDS ORDERED: VANCOMYCIN IV 1,250 MG in IV DEXTROSE 5% 250 ML IV SCH (17:00)
[2019-05-30 17:26] LABS: CREATININE 0.8 mg/dL (0.6-1.3); POTASSIUM 5.6 mmol/L (3.5-5.1)
[2019-05-30] MEDS ORDERED: PIPERACILLIN SODIUM/TAZOBACTAM 3.375 G in IV DEXTROSE 5% 50 ML IV SCH (18:00)
[2019-05-30] MEDS: SENNOSIDES 1 TABLET GT SCH (21:00)
[2019-05-30] MEDS ORDERED: ENOXAPARIN SODIUM 40 MG/0.4 ML DISP.SYRIN SQ SCH (21:00)
[2019-05-30] MEDS: AMITRIPTYLINE HCL 25 MG TABLET GT SCH (21:00)
[2019-05-30] MEDS: MEMANTINE HCL 10 MG TABLET GT SCH (21:00)
[2019-05-30] MEDS: MIRTAZAPINE 15 MG TABLET GT SCH (21:00)
[2019-05-30] MEDS: MICAFUNGIN SODIUM 100 MG in IV NORMAL SALINE 100 ML IV SCH (21:46)
[2019-05-31] VITALS (24 sets, daily range): BP systolic 115–150; BP diastolic 56–99
[2019-05-31 04:54] LABS: BASOPHILS # (AUTO) 0.4 K/uL (0.0-8.0); BASOPHILS % (AUTO) 1.2 % (0.0-2.0); EOSINOPHILS % (AUTO) 0.2 % (0.0-7.0); HEMATOCRIT 35.3 % (31.2-41.9); HEMOGLOBIN 11.4 g/dL (10.9-14.3); LYMPHOCYTES # (AUTO) 0.5 K/uL (20.0-40.0); LYMPHOCYTES % (AUTO) 1.6 % (20.5-51.5); MEAN CORPUSCULAR HEMOGLOBIN 30.2 uug (24.7-32.8); MEAN CORPUSCULAR HGB CONC 32 g/dL (32.3-35.6); MEAN CORPUSCULAR VOLUME 93.3 fL (75.5-95.3); MONOCYTES # (AUTO) 0.7 K/uL (2.0-10.0); MONOCYTES % (AUTO) 2.5 % (0.0-11.0); NEUTROPHILS % (AUTO) 94.5 % (38.5-71.5); PLATELET COUNT (AUTO) 232 K/uL (179-408); RED BLOOD CELL COUNT(AUTO) 3.78 MIL/uL (3.63-4.92); WHITE BLOOD COUNT (AUTO) 29.7 K/uL (3.8-11.8)
[2019-05-31 05:11] LABS: CREATININE 0.8 mg/dL (0.6-1.3); MAGNESIUM 2.6 mg/dL (1.8-2.4); PHOSPHOROUS 4.6 mg/dL (2.5-4.9); POTASSIUM 5.1 mmol/L (3.5-5.1)
[2019-05-31] MEDS: VANCOMYCIN FOR PO/GT/NG USE PO SCH ×3 (05:26→19:21)
[2019-05-31 05:57] LABS: BAND % (MANUAL) 3 % (0-10); EOSINOPHILS % (MANUAL) 1 % (0-8); LYMPHOCYTES % (MANUAL) 3 % (20-40); MONOCYTES % (MANUAL) 3 % (2-10); NEUTROPHILS % (MANUAL) 90 % (42-75)
[2019-05-31] MEDS: LEVOTHYROXINE SODIUM 50 MCG TABLET GT SCH (06:35)
[2019-05-31] MEDS: MEROPENEM 1 G in IV NORMAL SALINE 100 ML IV SCH ×2 (08:14→16:52)
[2019-05-31] MEDS ORDERED: ACETAMINOPHEN 650 MG SUPP.RECT RC PRN (08:30)
[2019-05-31] MEDS: PANTOPRAZOLE SODIUM 40 MG VIAL IV SCH (09:02)
[2019-05-31] MEDS: IV D5/ 0.9% NACL 1,000 ML IV PRN (10:40)
[2019-05-31] MEDS ORDERED: TPN/PPN PER PHARMACY IV PRN (11:15)
[2019-05-31] MEDS ORDERED: SODIUM CHLORIDE IV PRN ×5 (20:00)
[2019-05-31] MEDS ORDERED: MVI ADULT IV PRN ×5 (20:00)
[2019-05-31] MEDS ORDERED: IV D5/ 0.9% NACL 1,000 ML IV PRN (20:00)
[2019-05-31] MEDS ORDERED: [UNRECOGNIZED DRUG - OTHER] IV PRN ×5 (20:00)
[2019-05-31] MEDS: MICAFUNGIN SODIUM 100 MG in IV NORMAL SALINE 100 ML IV SCH (20:21)
[2019-05-31] MEDS: VANCOMYCIN IV 1,000 MG in IV DEXTROSE 5% 250 ML IV SCH (21:56)
[2019-05-31] MEDS: BLOOD SUGAR DIAGNOSTIC 1 EACH STRIP VI SCH (22:54)
[2019-06-01] VITALS (24 sets, daily range): BP systolic 121–145; BP diastolic 59–112
[2019-06-01] MEDS: VANCOMYCIN FOR PO/GT/NG USE PO SCH ×5 (00:25→23:19)
[2019-06-01] MEDS: MEROPENEM 1 G in IV NORMAL SALINE 100 ML IV SCH ×4 (00:25→23:18)
[2019-06-01] MEDS: IV NORMAL SALINE 250 ML IV PRN (05:20)
[2019-06-01] MEDS: BLOOD SUGAR DIAGNOSTIC 1 EACH STRIP VI SCH ×2 (05:41→14:47)
[2019-06-01 05:42] LABS: BASOPHILS % (AUTO) 0.2 % (0.0-2.0); EOSINOPHILS % (AUTO) 0.2 % (0.0-7.0); HEMOGLOBIN 11.6 g/dL (10.9-14.3); LYMPHOCYTES # (AUTO) 0.4 K/uL (20.0-40.0); LYMPHOCYTES % (AUTO) 1.8 % (20.5-51.5); MEAN CORPUSCULAR HEMOGLOBIN 30.5 uug (24.7-32.8); MEAN CORPUSCULAR HGB CONC 32 g/dL (32.3-35.6); MEAN CORPUSCULAR VOLUME 94.4 fL (75.5-95.3); MONOCYTES # (AUTO) 0.5 K/uL (2.0-10.0); MONOCYTES % (AUTO) 2.2 % (0.0-11.0); NEUTROPHILS # (AUTO) 22.7 K/uL (1.8-8.9); NEUTROPHILS % (AUTO) 95.6 % (38.5-71.5); PLATELET COUNT (AUTO) 221 K/uL (179-408); RED BLOOD CELL COUNT(AUTO) 3.81 MIL/uL (3.63-4.92); WHITE BLOOD COUNT (AUTO) 23.8 K/uL (3.8-11.8)
[2019-06-01 06:24] LABS: CREATININE 0.7 mg/dL (0.6-1.3); MAGNESIUM 2.4 mg/dL (1.8-2.4); PHOSPHOROUS 3.1 mg/dL (2.5-4.9); POTASSIUM 4.5 mmol/L (3.5-5.1)
[2019-06-01] MEDS: LEVOTHYROXINE SODIUM 50 MCG TABLET GT SCH (06:38)
[2019-06-01 08:06] LABS: HEPATITIS A AB, IgM Negative (Negative); HEPATITIS A AB, TOTAL Positive (Negative); HEPATITIS B SURFACE AB Non Reactive (.); HEPATITIS B SURFACE AG Negative (Negative)
[2019-06-01] MEDS: PANTOPRAZOLE SODIUM 40 MG VIAL IV SCH (08:25)
[2019-06-01] MEDS ORDERED: SODIUM CHLORIDE IV PRN ×4 (12:00)
[2019-06-01] MEDS ORDERED: SODIUM PHOSPHATE MM IV PRN ×4 (12:00)
[2019-06-01] MEDS ORDERED: [UNRECOGNIZED DRUG - OTHER] IV PRN ×4 (12:00)
[2019-06-01] MEDS ORDERED: IV FAT EMULSIONS 20% 250 ML IV ONE (13:00)
[2019-06-01] MEDS: MICAFUNGIN SODIUM 100 MG in IV NORMAL SALINE 100 ML IV SCH (20:09)
[2019-06-01] MEDS: VANCOMYCIN IV 1,000 MG in IV DEXTROSE 5% 250 ML IV SCH (21:23)
[2019-06-02] VITALS (17 sets, daily range): BP systolic 100–153; BP diastolic 49–74
[2019-06-02] MEDS ORDERED: [UNRECOGNIZED DRUG - OTHER] IV PRN ×6
[2019-06-02] MEDS ORDERED: SODIUM PHOSPHATE MM IV PRN ×6
[2019-06-02] MEDS: VANCOMYCIN FOR PO/GT/NG USE PO SCH ×4 (06:01→23:35)
[2019-06-02] MEDS: IV NORMAL SALINE 250 ML IV PRN (06:33)
[2019-06-02 07:20] LABS: BASOPHILS % (AUTO) 0.1 % (0.0-2.0); EOSINOPHILS # (AUTO) 0.1 K/uL (0.0-0.7); EOSINOPHILS % (AUTO) 0.6 % (0.0-7.0); HEMATOCRIT 32.1 % (31.2-41.9); HEMOGLOBIN 10.5 g/dL (10.9-14.3); LYMPHOCYTES # (AUTO) 0.3 K/uL (20.0-40.0); LYMPHOCYTES % (AUTO) 1.6 % (20.5-51.5); MEAN CORPUSCULAR HGB CONC 33 g/dL (32.3-35.6); MEAN CORPUSCULAR VOLUME 95.1 fL (75.5-95.3); MONOCYTES # (AUTO) 0.6 K/uL (2.0-10.0); MONOCYTES % (AUTO) 2.9 % (0.0-11.0); NEUTROPHILS # (AUTO) 18.5 K/uL (1.8-8.9); NEUTROPHILS % (AUTO) 94.8 % (38.5-71.5); PLATELET COUNT (AUTO) 193 K/uL (179-408); RED BLOOD CELL COUNT(AUTO) 3.37 MIL/uL (3.63-4.92); WHITE BLOOD COUNT (AUTO) 19.5 K/uL (3.8-11.8)
[2019-06-02 07:33] LABS: ALANINE AMINOTRANSFERASE 36 U/L (14-59); ALKALINE PHOSPHATASE 81 U/L (50-136); ASPARTATE AMINOTRANSFERASE 23 U/L (15-37); BILIRUBIN,TOTAL 0.3 mg/dL (0.2-1.0); CARBON DIOXIDE 25 mmol/L (21-32); CHLORIDE 106 mmol/L (98-107); CREATININE 0.4 mg/dL (0.6-1.3); GLUCOSE 149 mg/dL (74-106); PHOSPHOROUS 1.7 mg/dL (2.5-4.9); POTASSIUM 3.6 mmol/L (3.5-5.1); TOTAL PROTEIN, SERUM 4.1 g/dL (6.4-8.2); UREA NITROGEN, BLOOD 25 mg/dL (7-18)
[2019-06-02] MEDS: LEVOTHYROXINE SODIUM 50 MCG TABLET GT SCH (07:53)
[2019-06-02] MEDS: MEROPENEM 1 G in IV NORMAL SALINE 100 ML IV SCH ×3 (07:53→23:42)
[2019-06-02 07:54] LABS: BAND % (MANUAL) 1 % (0-10); LYMPHOCYTES % (MANUAL) 2 % (20-40); MONOCYTES % (MANUAL) 1 % (2-10); NEUTROPHILS % (MANUAL) 96 % (42-75)
[2019-06-02] MEDS: PANTOPRAZOLE SODIUM 40 MG VIAL IV SCH (08:13)
[2019-06-02] MEDS: Z GUARD REMEDY PASTE 57 GM TUBE TOP SCH ×2 (08:19→20:12)
[2019-06-02] MEDS ORDERED: SODIUM PHOSPHATE MM 7.5 MM in IV DEXTROSE 5% 100 ML IV ONE (09:00)
[2019-06-02] MEDS ORDERED: POTASSIUM PHOSPHATE MM 7.5 MMOL in IV DEXTROSE 5% 100 ML IV SCH (09:30)
[2019-06-02] MEDS ORDERED: DEXTROSE 50% 50 ML DISP.SYRIN IV PRN (11:00)
[2019-06-02] MEDS: BLOOD SUGAR DIAGNOSTIC 1 EACH STRIP VI SCH ×3 (11:31→23:35)
[2019-06-02] MEDS ORDERED: [UNRECOGNIZED DRUG - OTHER] IV PRN ×5 (12:30)
[2019-06-02] MEDS ORDERED: POTASSIUM CHLORIDE IV PRN ×5 (12:30)
[2019-06-02] MEDS ORDERED: SODIUM CHLORIDE IV PRN ×11 (12:30)
[2019-06-02] MEDS ORDERED: IV FAT EMULSIONS 20% 250 ML IV ONE (13:00)
[2019-06-02] MEDS: MICAFUNGIN SODIUM 100 MG in IV NORMAL SALINE 100 ML IV SCH (20:11)
[2019-06-02] MEDS: VANCOMYCIN IV 1,000 MG in IV DEXTROSE 5% 250 ML IV SCH (22:16)
[2019-06-02] MEDS: INSULIN REGULAR, HUMAN 300 UNIT/3 ML VIAL SQ PRN (23:41)
[2019-06-03 00:22] VITALS: BP 125/65
[2019-06-03] MEDS ORDERED: [UNRECOGNIZED DRUG - OTHER] IV PRN ×7 (01:00)
[2019-06-03] MEDS ORDERED: POTASSIUM CHLORIDE IV PRN ×12 (01:00→16:01)
[2019-06-03] MEDS ORDERED: SODIUM CHLORIDE IV PRN ×12 (01:00→16:01)
[2019-06-03 05:03] VITALS: BP 139/95
[2019-06-03] MEDS: BLOOD SUGAR DIAGNOSTIC 1 EACH STRIP VI SCH ×3 (06:13→17:36)
[2019-06-03] MEDS: LEVOTHYROXINE SODIUM 50 MCG TABLET GT SCH (06:14)
[2019-06-03] MEDS: VANCOMYCIN FOR PO/GT/NG USE PO SCH ×3 (06:15→17:27)
[2019-06-03] MEDS: INSULIN REGULAR, HUMAN 300 UNIT/3 ML VIAL SQ PRN (06:16)
[2019-06-03 07:13] LABS: BASOPHILS # (AUTO) 0.1 K/uL (0.0-8.0); BASOPHILS % (AUTO) 0.5 % (0.0-2.0); EOSINOPHILS # (AUTO) 0.1 K/uL (0.0-0.7); EOSINOPHILS % (AUTO) 0.5 % (0.0-7.0); HEMOGLOBIN 9.5 g/dL (10.9-14.3); LYMPHOCYTES # (AUTO) 0.3 K/uL (20.0-40.0); LYMPHOCYTES % (AUTO) 1.6 % (20.5-51.5); MEAN CORPUSCULAR HEMOGLOBIN 30.7 uug (24.7-32.8); MEAN CORPUSCULAR HGB CONC 33 g/dL (32.3-35.6); MEAN CORPUSCULAR VOLUME 93.8 fL (75.5-95.3); MONOCYTES # (AUTO) 0.5 K/uL (2.0-10.0); MONOCYTES % (AUTO) 2.7 % (0.0-11.0); NEUTROPHILS # (AUTO) 17.2 K/uL (1.8-8.9); NEUTROPHILS % (AUTO) 94.7 % (38.5-71.5); PLATELET COUNT (AUTO) 178 K/uL (179-408); RED BLOOD CELL COUNT(AUTO) 3.09 MIL/uL (3.63-4.92); WHITE BLOOD COUNT (AUTO) 18.2 K/uL (3.8-11.8)
[2019-06-03 07:17] LABS: CARBON DIOXIDE 26 mmol/L (21-32); CHLORIDE 106 mmol/L (98-107); CREATININE 0.4 mg/dL (0.6-1.3); GLUCOSE 146 mg/dL (74-106); PHOSPHOROUS 1.9 mg/dL (2.5-4.9); POTASSIUM 3.4 mmol/L (3.5-5.1); UREA NITROGEN, BLOOD 27 mg/dL (7-18)
[2019-06-03] MEDS: PANTOPRAZOLE SODIUM 40 MG VIAL IV SCH (08:38)
[2019-06-03] MEDS: Z GUARD REMEDY PASTE 57 GM TUBE TOP SCH ×2 (08:38→20:21)
[2019-06-03] MEDS: MEROPENEM 1 G in IV NORMAL SALINE 100 ML IV SCH ×2 (08:39→17:27)
[2019-06-03] MEDS: POTASSIUM PHOSPHATE MM 7.5 MMOL in IV DEXTROSE 5% 100 ML IV SCH ×2 (10:15→13:47)
[2019-06-03 11:55] VITALS: BP 104/54
[2019-06-03] MEDS ORDERED: IV FAT EMULSIONS 20% 250 ML IV ONE (13:00)
[2019-06-03] MEDS: METRONIDAZOLE 500 MG/NS 100ML 500 MG in PREMIXED 1 EACH IV SCH ×2 (13:47→22:00)
[2019-06-03] MEDS ORDERED: [UNRECOGNIZED DRUG - OTHER] IV PRN ×5 (16:01)
[2019-06-03 16:32] VITALS: BP 108/60
[2019-06-03 20:00] VITALS: BP 142/69
[2019-06-03] MEDS: IV NORMAL SALINE 250 ML IV PRN (21:03)
[2019-06-03] MEDS: VANCOMYCIN IV 1,000 MG in IV DEXTROSE 5% 250 ML IV SCH (22:00)
[2019-06-04] VITALS (7 sets, daily range): BP systolic 112–154; BP diastolic 54–87
[2019-06-04] MEDS: BLOOD SUGAR DIAGNOSTIC 1 EACH STRIP VI SCH ×5 (00:01→23:42)
[2019-06-04] MEDS: VANCOMYCIN FOR PO/GT/NG USE PO SCH ×5 (00:01→23:22)
[2019-06-04] MEDS: MEROPENEM 1 G in IV NORMAL SALINE 100 ML IV SCH ×4 (00:01→23:22)
[2019-06-04] MEDS: INSULIN REGULAR, HUMAN 300 UNIT/3 ML VIAL SQ PRN ×2 (02:55→05:51)
[2019-06-04] MEDS ORDERED: POTASSIUM CHLORIDE IV PRN ×13 (04:30→19:30)
[2019-06-04] MEDS ORDERED: [UNRECOGNIZED DRUG - OTHER] IV PRN ×7 (04:30)
[2019-06-04] MEDS ORDERED: SODIUM CHLORIDE IV PRN ×13 (04:30→19:30)
[2019-06-04] MEDS: METRONIDAZOLE 500 MG/NS 100ML 500 MG in PREMIXED 1 EACH IV SCH ×3 (05:35→21:34)
[2019-06-04 06:28] LABS: CREATININE 0.4 mg/dL (0.6-1.3); UREA NITROGEN, BLOOD 26 mg/dL (7-20)
[2019-06-04 06:29] LABS: CARBON DIOXIDE 23 mmol/L (21-32); CHLORIDE 106 mmol/L (98-107); GLUCOSE 152 mg/dL (74-106); MAGNESIUM 1.8 mg/dL (1.8-2.4); PHOSPHOROUS 2.6 mg/dL (2.5-4.9); POTASSIUM 3.7 mmol/L (3.5-5.1)
[2019-06-04] MEDS: LEVOTHYROXINE SODIUM 50 MCG TABLET GT SCH (06:37)
[2019-06-04 06:44] LABS: WHITE BLOOD COUNT (AUTO) 16.6 K/UL (4.0-11.2)
[2019-06-04 06:45] LABS: HEMATOCRIT 29.7 % (37-47); HEMOGLOBIN 9.7 G/DL (12.0-16.0); MEAN CORPUSCULAR HEMOGLOBIN 30.9 UUG (27.0-31.0); MEAN CORPUSCULAR VOLUME 93.7 FL (81.0-99.0); RED BLOOD CELL COUNT(AUTO) 3.14 MIL/UL (4.2-5.4)
[2019-06-04 06:46] LABS: BASOPHILS % (AUTO) 0.2 % (0.0-2.0); EOSINOPHILS % (AUTO) 0.4 % (0.0-7.0); MEAN CORPUSCULAR HGB CONC 33 g/dL (32.0-37.0); MONOCYTES % (AUTO) 2.9 % (0.0-11.0); NEUTROPHILS # (AUTO) 15.7 K/UL (1.8-8.9); NEUTROPHILS % (AUTO) 94.5 % (38.5-71.5); PLATELET COUNT (AUTO) 149 K/UL (150-450)
[2019-06-04 06:47] LABS: EOSINOPHILS # (AUTO) 0.1 K/uL (0.0-0.7); LYMPHOCYTES # (AUTO) 0.3 K/UL (0.8-4.8); MONOCYTES # (AUTO) 0.5 K/UL (0.1-1.30)
[2019-06-04] MEDS: PANTOPRAZOLE SODIUM 40 MG VIAL IV SCH (08:28)
[2019-06-04] MEDS: MORPHINE SULFATE 2 MG/1 ML DISP.SYRIN IV PRN (08:29)
[2019-06-04] MEDS: Z GUARD REMEDY PASTE 57 GM TUBE TOP SCH ×2 (09:00→21:33)
[2019-06-04 09:02] LABS: BILIRUBIN,DIRECT 0.1 mg/dL (0.0-0.2); BILIRUBIN,TOTAL 0.4 mg/dL (0.2-1.0); TOTAL PROTEIN, SERUM 3.7 g/dL (6.4-8.2)
[2019-06-04] MEDS ORDERED: WEAN OF TPN 1 EA EACH IV PRN (10:00)
[2019-06-04] MEDS ORDERED: IV FAT EMULSIONS 20% 250 ML IV ONE (13:30)
[2019-06-04] MEDS: VANCOMYCIN IV 1,000 MG in IV DEXTROSE 5% 250 ML IV SCH (16:24)
[2019-06-04] MEDS ORDERED: [UNRECOGNIZED DRUG - OTHER] IV PRN ×6 (19:30)
[2019-06-05 00:01] VITALS: BP 119/72
[2019-06-05] MEDS ORDERED: METRONIDAZOLE 500 MG/NS 100ML 100 ML IV ONE (01:01)
[2019-06-05 04:07] LABS: *CLARITY,URINE HAZY (CLEAR); *COLOR,URINE YELLOW (YELLOW); UGLUCOSE NEGATIVE (NEGATIVE)
[2019-06-05 04:08] LABS: *BILIRUBIN,URIN NEGATIVE (NEGATIVE); *BLOOD, URINE 2+ (NEGATIVE); *KETONES,URINE NEGATIVE (NEGATIVE); *UROBILINOGEN,URINE 0.2 E.U./dl (NORMAL); LEUKOCYTE ESTERASE ,URINE NEGATIVE (NEGATIVE); NITRITE, URINE NEGATIVE (NEGATIVE)
[2019-06-05 04:09] LABS: BACTERIA,URINE MODERATE /HPF (NONE SEEN); SQUAMOUS EPITHELIAL CELL,UR MODERATE /HPF (NONE SEEN); WBC,URINE 50-80 /HPF (0-3)
[2019-06-05] MEDS: BLOOD SUGAR DIAGNOSTIC 1 EACH STRIP VI SCH ×2 (05:20→11:27)
[2019-06-05] MEDS: METRONIDAZOLE 500 MG/NS 100ML 500 MG in PREMIXED 1 EACH IV SCH (05:21)
[2019-06-05] MEDS: VANCOMYCIN FOR PO/GT/NG USE PO SCH ×2 (05:22→11:27)
[2019-06-05] MEDS: LEVOTHYROXINE SODIUM 50 MCG TABLET GT SCH (05:25)
[2019-06-05 05:38] LABS: WHITE BLOOD COUNT (AUTO) 14.4 K/UL (4.0-11.2)
[2019-06-05 05:39] LABS: HEMATOCRIT 31.6 % (37-47); HEMOGLOBIN 10.4 G/DL (12.0-16.0); LYMPHOCYTES % (AUTO) 3.5 % (20.5-51.5); MEAN CORPUSCULAR HEMOGLOBIN 30.7 UUG (27.0-31.0); MEAN CORPUSCULAR HGB CONC 33 g/dL (32.0-37.0); MEAN CORPUSCULAR VOLUME 92.9 FL (81.0-99.0); MONOCYTES % (AUTO) 3.2 % (0.0-11.0); NEUTROPHILS % (AUTO) 92.4 % (38.5-71.5); PLATELET COUNT (AUTO) 144 K/UL (150-450)
[2019-06-05 05:40] LABS: BASOPHILS # (AUTO) 0.1 K/uL (0.0-8.0); BASOPHILS % (AUTO) 0.4 % (0.0-2.0); EOSINOPHILS # (AUTO) 0.1 K/uL (0.0-0.7); EOSINOPHILS % (AUTO) 0.5 % (0.0-7.0); LYMPHOCYTES # (AUTO) 0.5 K/UL (0.8-4.8); MONOCYTES # (AUTO) 0.5 K/UL (0.1-1.30); NEUTROPHILS # (AUTO) 13.3 K/UL (1.8-8.9)
[2019-06-05 06:04] LABS: POTASSIUM 3.5 mmol/L (3.5-5.1)
[2019-06-05 06:05] LABS: CREATININE 0.4 mg/dL (0.6-1.3)
[2019-06-05 06:06] LABS: PHOSPHOROUS 2.3 mg/dL (2.5-4.9)
[2019-06-05] MEDS: MEROPENEM 1 G in IV NORMAL SALINE 100 ML IV SCH (07:44)
[2019-06-05] MEDS: Z GUARD REMEDY PASTE 57 GM TUBE TOP SCH (07:45)
[2019-06-05] MEDS: PANTOPRAZOLE SODIUM 40 MG VIAL IV SCH (07:47)
[2019-06-05 08:00] VITALS: BP 117/63
[2019-06-05] MEDS ORDERED: SODIUM CHLORIDE IV PRN ×8 (08:00)
[2019-06-05] MEDS ORDERED: MVI ADULT IV PRN ×7 (08:00)
[2019-06-05] MEDS ORDERED: SODIUM ACETATE IV SCH ×7 (08:00)
[2019-06-05] MEDS ORDERED: [UNRECOGNIZED DRUG - OTHER] IV PRN ×8 (08:00)
[2019-06-05] MEDS ORDERED: MAGNESIUM SULFATE IV PRN ×12 (08:00→20:30)
[2019-06-05] MEDS ORDERED: [UNRECOGNIZED DRUG - OTHER] IV PRN ×7 (08:00)
[2019-06-05] MEDS ORDERED: MVI ADULT IV SCH ×7 (08:00)
[2019-06-05] MEDS ORDERED: MAGNESIUM SULFATE IV SCH ×7 (08:00)
[2019-06-05] MEDS ORDERED: POTASSIUM CHLORIDE IV PRN ×8 (08:00)
[2019-06-05] MEDS ORDERED: SODIUM ACETATE IV PRN ×12 (08:00→20:30)
[2019-06-05] MEDS ORDERED: [UNRECOGNIZED DRUG - OTHER] IV SCH ×7 (08:00)
[2019-06-05] MEDS: MORPHINE SULFATE 2 MG/1 ML DISP.SYRIN IV PRN (10:29)
[2019-06-05 11:25] VITALS: BP 133/67
[2019-06-05] MEDS: VANCOMYCIN IV 1,000 MG in IV DEXTROSE 5% 250 ML IV SCH (11:27)
[2019-06-05] MEDS: INSULIN REGULAR, HUMAN 300 UNIT/3 ML VIAL SQ PRN (11:29)
[2019-06-05] MEDS ORDERED: IV FAT EMULSIONS 20% 250 ML IV ONE (13:30)
[2019-06-05] MEDS ORDERED: LORAZEPAM 2 MG/1 ML VIAL IV PRN (14:00)
[2019-06-05] MEDS ORDERED: MORPHINE SULFATE PF IV DRIP 250 MG in IV DEXTROSE 5% 240 ML IV PRN (14:00)
[2019-06-05] MEDS: MORPHINE SULFATE PF IV DRIP 250 MG in IV DEXTROSE 5% 240 ML IV PRN (14:34)
[2019-06-05 16:00] VITALS: BP 152/78
[2019-06-05 19:56] VITALS: BP 137/63
[2019-06-05] MEDS ORDERED: [UNRECOGNIZED DRUG - OTHER] IV PRN ×5 (20:30)
[2019-06-05] MEDS ORDERED: POTASSIUM PHOSPHATE MM IV PRN ×5 (20:30)
[2019-06-06] MEDS: MORPHINE SULFATE PF IV DRIP 250 MG in IV DEXTROSE 5% 240 ML IV PRN ×2 (05:24→15:05)
[2019-06-06 19:58] VITALS: BP 107/50
[2019-06-07] MEDS: MORPHINE SULFATE PF IV DRIP 250 MG in IV DEXTROSE 5% 240 ML IV PRN ×2 (06:59→19:30)
[2019-06-07] MEDS ORDERED: MORPHINE SULFATE PF IV DRIP 250 MG in IV DEXTROSE 5% 240 ML IV PRN (11:15)
[2019-06-08] MEDS: MORPHINE SULFATE PF IV DRIP 250 MG in IV DEXTROSE 5% 240 ML IV PRN ×2 (02:30→08:45)
[2019-06-08] MEDS ORDERED: HYDROMORPHONE HP IV PRN (11:15)
[2019-06-08] MEDS ORDERED: DRIP IV PRN (11:15)
[2019-06-08] MEDS ORDERED: DEXTROSE 5% IV PRN (11:15)
[2019-06-09] MEDS: HYDROMORPHONE 1 MG/1 ML DISP.SYRIN IV SCH ×3 (06:05→06:57)
[2019-06-09] MEDS: DRIP IV PRN ×2 (07:30→17:17)
[2019-06-09] MEDS: DEXTROSE 5% IV PRN ×2 (07:30→17:17)
[2019-06-09] MEDS: HYDROMORPHONE HP IV PRN ×2 (07:30→17:17)
[2019-06-09] MEDS: LORAZEPAM 2 MG/1 ML VIAL IV SCH ×13 (11:15→23:25)
[2019-06-10] MEDS: LORAZEPAM 2 MG/1 ML VIAL IV SCH ×24 (00:30→23:22)
[2019-06-10] MEDS: HYDROMORPHONE HP IV PRN ×5 (02:31→18:24)
[2019-06-10] MEDS: DEXTROSE 5% IV PRN ×5 (02:31→18:24)
[2019-06-10] MEDS: DRIP IV PRN ×5 (02:31→18:24)
[2019-06-11] MEDS: LORAZEPAM 2 MG/1 ML VIAL IV SCH ×24 (00:22→23:20)
[2019-06-11] MEDS: DEXTROSE 5% IV PRN ×4 (00:40→08:34)
[2019-06-11] MEDS: HYDROMORPHONE HP IV PRN ×5 (00:40→23:20)
[2019-06-11] MEDS: DRIP IV PRN ×5 (00:40→23:20)
[2019-06-11] MEDS: METHADONE IV PRN ×3 (14:39→22:28)
[2019-06-11] MEDS: NORMAL SALINE IV PRN ×4 (14:39→23:20)
[2019-06-11] MEDS ORDERED: HYDROMORPHONE HP IV PRN (17:45)
[2019-06-11] MEDS ORDERED: DRIP IV PRN (17:45)
[2019-06-11] MEDS ORDERED: NORMAL SALINE IV PRN (17:45)
[2019-06-12] MEDS: LORAZEPAM 2 MG/1 ML VIAL IV SCH ×13 (00:20→13:30)
[2019-06-12] MEDS: NORMAL SALINE IV PRN ×4 (04:20→10:10)
[2019-06-12] MEDS: HYDROMORPHONE HP IV PRN ×2 (04:20→10:05)
[2019-06-12] MEDS: DRIP IV PRN ×2 (04:20→10:05)
[2019-06-12] MEDS: METHADONE IV PRN ×2 (05:03→10:10)
[2019-06-12] MEDS ORDERED: LORAZEPAM 2 MG/1 ML VIAL ONE (05:27)
[2019-06-12] MEDS ORDERED: METHADONE IV PRN (13:15)
[2019-06-12] MEDS ORDERED: NORMAL SALINE IV PRN (13:15)
== END 2019-06-12 15:55 | disposition expired | DRG 871 ==
LOC: ER 21:23 → TELE3 05-22 00:28 → MEDSURG3 05-26 15:08 → TELE3 05-26 16:05 → CCU 05-30 15:49 → TELE-TD3 06-02 17:45 → CCU 06-03 16:05 → TELE3 06-05 06:36 → TELE-TD3 06-05 07:07 → MEDSURG3 06-05 15:50
PROVIDERS: ADMIT Nurse Practitioner Acute Care; ATTEND Internal Medicine
PROC: 05HC33Z Insertion of Infusion Device into Left Basilic Vein, Percutaneous Approach (ICD-10-PCS; principal; 2019-05-24)
PROC: 0DH673Z Insertion of Infusion Device into Stomach, Via Natural or Artificial Opening (ICD-10-PCS; 2019-05-24)
PROC: 05HA33Z Insertion of Infusion Device into Left Brachial Vein, Percutaneous Approach (ICD-10-PCS; 2019-05-30)
PROC: 02HV33Z Insertion of Infusion Device into Superior Vena Cava, Percutaneous Approach (ICD-10-PCS; 2019-05-31)
PROC: B548ZZA Ultrasonography of Superior Vena Cava, Guidance (ICD-10-PCS; 2019-05-31)
DX: A41.9 Sepsis, unspecified organism (principal); N17.0 Acute kidney failure with tubular necrosis; E43 Unspecified severe protein-calorie malnutrition; J69.0 Pneumonitis due to inhalation of food and vomit; G92 Toxic encephalopathy; K63.1 Perforation of intestine (nontraumatic); N39.0 Urinary tract infection, site not specified; A04.72 Enterocolitis due to Clostridium difficile, not specified as recurrent; D68.59 Other primary thrombophilia; J98.11 Atelectasis; I50.32 Chronic diastolic (congestive) heart failure; E87.1 Hypo-osmolality and hyponatremia; Z66 Do not resuscitate; Z51.5 Encounter for palliative care; G30.9 Alzheimer's disease, unspecified; F02.80 Dementia in other diseases classified elsewhere, unspecified severity, without behavioral disturbance, psychotic disturbance, mood disturbance, and anxiety; K52.89 Other specified noninfective gastroenteritis and colitis; E03.9 Hypothyroidism, unspecified; S30.0XXA Contusion of lower back and pelvis, initial encounter; X58.XXXA Exposure to other specified factors, initial encounter; Y92.129 Unspecified place in nursing home as the place of occurrence of the external cause; S42.201D Unspecified fracture of upper end of right humerus, subsequent encounter for fracture with routine healing; W19.XXXD Unspecified fall, subsequent encounter; Z68.23 Body mass index [BMI] 23.0-23.9, adult; L89.150 Pressure ulcer of sacral region, unstageable; K56.41 Fecal impaction; Z74.09 Other reduced mobility; K21.9 Gastro-esophageal reflux disease without esophagitis; D25.9 Leiomyoma of uterus, unspecified; I25.2 Old myocardial infarction; I25.10 Atherosclerotic heart disease of native coronary artery without angina pectoris; R13.10 Dysphagia, unspecified; M81.0 Age-related osteoporosis without current pathological fracture; M19.90 Unspecified osteoarthritis, unspecified site; M51.36 Other intervertebral disc degeneration, lumbar region; M48.061 Spinal stenosis, lumbar region without neurogenic claudication; I10 Essential (primary) hypertension; I11.0 Hypertensive heart disease with heart failure; I70.0 Atherosclerosis of aorta; F41.9 Anxiety disorder, unspecified; E87.5 Hyperkalemia; F32.9 Major depressive disorder, single episode, unspecified; S50.321A Blister (nonthermal) of right elbow, initial encounter; Y92.230 Patient room in hospital as the place of occurrence of the external cause; Z79.82 Long term (current) use of aspirin; Z79.890 Hormone replacement therapy; Z79.899 Other long term (current) drug therapy; R65.20 Severe sepsis without septic shock
CPT/HCPCS: 36415; 70030-TC; 71045; 74018; 76700; 82378; 83605; 83735; 84100; 84443; 85025; 85730; 86706; 86708; 86709; 86803; 87040; 87086; 87340; 87400; 93005; A4217; A4663; C1758; C9113; G0378; J1170; J1230; J1650; J1815; J1940; J2060; J2185; J2248; J2270; J2274; J2543; J3370; J3475; J3480; J3490; J7030; J7042; J7050; J7060; J7070; J7131; Q9963; Q9967